=== PATIENT | female | born 1955 | race Caucasian/White ===

== ENCOUNTER 2016-07-17 05:17 | Inpatient (IN) | payer BC ==
[2016-06-17 09:11] VITALS: BMI 41.0
--- NOTE | 2016-06-17 10:02 | PAT Medication Instructions ---
Service Date Jun 17, 2016. Current Home Medication List Aspirin Enteric Coated (Ecotrin Or Generic *), 325 MG PO QPM Atenolol (Tenormin), 50 MG PO QAM Cholecalciferol (Vitamin D3), 1 CAP PO QAM Diclofenac (Voltaren), 50 MG PO QAM Fish Oil ([place]-3), 2,000 MG PO QPM Losartan Potassium (Cozaar), 50 MG PO BID Lovastatin (Mevacor), 80 MG PO QPM Magnesium Oxide (Mag-Ox), 400 MG PO QAM Metformin HCL (Glucophage *), 1,000 MG PO BID Multivitamin (Multivitamin), 1 TAB PO QPM Niacin (Niacin), 2,000 MG PO QPM Pantoprazole (Protonix), 40 MG PO QAM [Calcium], 600 MG PO QPM [Co Q10], 1 TAB PO PRN Medication Instructions For Your Scheduled Surgery - Instructions to be given by surgeon: Aspirin Enteric Coated (Ecotrin Or Generic *), 325 MG PO QPM Diclofenac (Voltaren), 50 MG PO QAM - Hold the following medications 2 weeks prior to surgery: [Co Q10], 1 TAB PO PRN Fish Oil ([place]-3), 2,000 MG PO QPM - Hold the following medications 48 hours prior to surgery: Metformin HCL (Glucophage *), 1,000 MG PO BID - Hold the following medications 24 hours prior to surgery: Losartan Potassium (Cozaar), 50 MG PO BID Niacin (Niacin), 2,000 MG PO QPM - Hold the following medications the morning of surgery: Magnesium Oxide (Mag-Ox), 400 MG PO QAM Cholecalciferol (Vitamin D3), 1 CAP PO QAM - Take the following medications the morning of surgery with a sip of water OTHERWISE NOTHING TO EAT OR DRINK AFTER MIDNIGHT: Atenolol (Tenormin), 50 MG PO QAM Pantoprazole (Protonix), 40 MG PO QAM - Take the following medications as scheduled the night before surgery: Lovastatin (Mevacor), 80 MG PO QPM Multivitamin (Multivitamin), 1 TAB PO QPM [Calcium], 600 MG PO QPM If you have any questions please call us at [phone] (Netta Ramirez PA-C) or [phone] or [phone]
--- NOTE | 2016-06-17 10:23 | DIAGNOSTIC IMAGING REPORT ---
CHEST PREADMISSION(PA/LAT) HISTORY: Preop. COMPARISON: None. FINDINGS: The lungs are clear. Cardiac silhouette is normal in size. No pleural effusions. No pneumothorax. IMPRESSION: No acute process. Electronically signed by: Fransisco Everett M.D. 06/17/2016 10:22 AM
[2016-06-17 11:16] LABS: BASO % 0.3 %; BASO ABS # 0.02 K/uL (0-0.2); COMPLETE YES; EOS % 2.1 %; HEMATOCRIT 35.1 % (37-47); IG% 0.2 %; LYMPH % 40.3 %; LYMPH ABS # 2.55 K/uL (1.2-3.4); MEAN CORPUSCULAR HEMOGLOBIN 33.2 pg (25-34); MEAN CORPUSCULAR HGB CONC 33.9 g/dl (32-36); MEAN PLATELET VOLUME 8.6 fL (7.4-10.4); MONO % 11.4 %; NEUT % 45.7 %; PLATELET COUNT 292 K/uL (130-400); RED BLOOD COUNT 3.58 M/uL (4.2-5.4); WHITE BLOOD COUNT 6.33 K/uL (4.8-10.8)
[2016-06-17 11:17] LABS: URINE APPEARANCE CLEAR (CLEAR); URINE BILIRUBIN NEG (NEG); URINE COLOR YELLOW; URINE NITRITE NEG (NEG); URINE PH 6.5 (4.5-7.5); URINE SPECIFIC GRAVITY 1.005 (1.000-1.030); UROBILINOGEN NEG (NEG)
[2016-06-17 11:31] LABS: MANUAL MICROSCOPIC REQUIRED? NO; REVIEW REQ? NO
[2016-06-17 11:41] LABS: BUN/CREATININE RATIO 22.2 (10-20); CREATININE 1.2 mg/dl (0.60-1.20); POTASSIUM 4.6 mmol/L (3.5-5.1)
[2016-06-17 11:58] LABS: CALCIUM 10.3 mg/dl (8.5-10.1)
--- NOTE | 2016-07-16 15:10 | HISTORY & PHYSICAL EXAMINATION ---
DATE OF ADMISSION: 07/17/2016 HISTORY OF PRESENT ILLNESS: The patient presents to our office with a complaint of back and left leg pain. It is progressively worsening. Right leg is asymptomatic. Walking and sitting reproduced her pain. She also reports weakness along her left leg. Sitting, she is comfortable. She has trialed injections with Dr. Beach which had provided roughly 1 month of relief. She is also taking muscle relaxants for pain control. PAST MEDICAL HISTORY: Significant for hypertension, hypercholesterolemia, spinal stenosis. PAST SURGICAL HISTORY: Significant for knee replacement, ankle reconstruction and tonsillectomy. ALLERGIES: None. MEDICATIONS: None listed. FAMILY HISTORY: Arthritis and heart disease. SOCIAL HISTORY: She is a former smoker. She uses alcohol. She is retired from [employer]. SMOKING HISTORY: She is a smoker, she quit in 2011. she was smoking half pack cigarettes x20 years. REVIEW OF SYSTEMS: Significant for difficulty walking, back and leg pain. PHYSICAL EXAMINATION: VITAL SIGNS: 5 feet 7 inches, 220 pounds. HEENT: Speech appropriate. CARDIOPULMONARY: No gross abnormalities. ABDOMEN: Soft, nontender. GENITOURINARY: Deferred. NEUROLOGIC: Cranial nerves II-XII grossly intact. MUSCULOSKELETAL: Ambulates with a stooped but a steady gait. She has difficulty toe walking on the right secondary to ankle surgery. She has 4-4+/5 left hamstring and hip flexor. Otherwise, strength is intact. ASSESSMENT: Grade 1-2 spondylolisthesis of L5-S1. Severe degenerative changes at L2-L3, L3-L4 and L4-L5. Severe neural foraminal stenosis L4-L5 and L5-S1. PLAN: At this point in time, she has tried and failed conservative therapy and may consider surgical intervention. Surgery would require lumbar decompression with instrumented fusion L2-L3, L3-L4, L4-L5 and L5-S1 levels. Risks, benefits, pros, cons, and alternatives were outlined in detail. She would proceed with the above-mentioned surgical intervention as soon as possible. DERRELL
[~2016-07-17] VITALS: Ht 170.2 cm; Wt 120.0 kg
[2016-07-17] VITALS (11 sets, daily range): BP systolic 96–164; BP diastolic 56–94; PULSE 63–85; TEMP 36.4–37.2; O2SAT 94–99; Ht 170.2 cm; Wt 120.0 kg
[~2016-07-17 05:17] MED LIST: AMLO-110 PO; ASPEC325 PO; ATEN50TA8 PO; CALC-51 PO; CHOL2000 PO; CO Q10 PO; DICL50TA3 PO; GLC500 PO; LOSA50TA6 PO; LOVA40TA4 PO; MAGN400T6 PO; MULT-506 PO; NIAC500T11 PO; OMEG10007 PO; PANT40TA PO
[2016-07-17] MEDS ORDERED: ACET-1256 PO (05:57)
[2016-07-17] MEDS ORDERED: CYCL10TA6 PO (05:58)
[2016-07-17] MEDS ORDERED: CEFAZOLIN 3000 MG/65 ML D5W IV SCH (06:00)
[2016-07-17] MEDS ORDERED: LACTATED RINGER'S 1000ML 1,000 ML IV SCH (06:00)
[2016-07-17] MEDS ORDERED: MIDAZOLAM HCL 1 MG/ML 2ML VIAL ONE (06:35)
[2016-07-17] MEDS ORDERED: FENTANYL CITRATE INJ 50 MCG/1 ML 2 ML VIAL ONE ×4 (06:35→10:39)
[2016-07-17] MEDS ORDERED: PROMETHAZINE HCL INJ 12.5 MG in SODIUM CHLORIDE 0.9% 50ML 50 ML IV PRN ×2 (07:30→10:45)
[2016-07-17] MEDS ORDERED: HYDROmorphone INJ 1 MG/ML SYR IV PRN (07:30)
[2016-07-17] MEDS ORDERED: ONDANSETRON INJ 2 MG/ML 2 ML VIAL IV PRN ×2 (07:30→10:45)
[2016-07-17] MEDS ORDERED: EpHEDrine SULFATE INJ 50 MG/ML AMP IV PRN (07:30)
[2016-07-17] MEDS ORDERED: ATROPINE SULFATE 0.1 MG/ML 5ML SYR IV PRN (07:30)
--- NOTE | 2016-07-17 07:34 | History & Physical Bridge Note ---
H&P Re-Evaluation Bridge Note: I have examined the patient, reviewed the History & Physical and in the interval since the performance of the History & Physical I have noted the following changes of clinical significance: No changes noted
[2016-07-17] MEDS ORDERED: HYDROmorphone INJ 2 MG/ML SYR/VIAL ONE ×2 (08:36→10:53)
[2016-07-17] MEDS ORDERED: THROMBIN 20000 UNIT TOP ONE (09:47)
[2016-07-17] MEDS ORDERED: FLOSEAL HEMOSTATIC MATRIX 10ML TOP ONE (10:09)
[2016-07-17] MEDS ORDERED: DEXAMETHASONE SOD INJ 4 MG/ML VIAL ONE (10:18)
[2016-07-17] MEDS ORDERED: PHENYLEPHRINE 100MCG/ML 5ML SYR ONE (10:18)
[2016-07-17] MEDS ORDERED: PROPOFOL IV EMULSION 10 MG/ML 20 ML VIAL IV ONE (10:18)
[2016-07-17] MEDS ORDERED: LIDOCAINE HCL 2% 2 ML VIAL (20MG/ML) ONE (10:18)
[2016-07-17] MEDS ORDERED: ROCURONIUM BROMIDE 10 MG/ML 5 ML VIAL ONE (10:18)
[2016-07-17] MEDS ORDERED: EpHEDrine SULFATE 50MG/5ML SYR ONE (10:18)
[2016-07-17] MEDS ORDERED: BUPIVACAINE/EPINEPHRINE 0.5% MPF 1:200,000 30 ML VIAL INJ ONE (10:37)
[2016-07-17] MEDS ORDERED: BACITRACIN 50000 UNIT VIAL IR ONE (10:37)
[2016-07-17] MEDS ORDERED: SODIUM CHLORIDE 0.9% 1000ML 1,000 ML IV SCH (10:38)
[2016-07-17] MEDS: LACTATED RINGER'S 1000ML 1,000 ML IV SCH ×2 (10:38→18:23)
--- NOTE | 2016-07-17 10:38 | [facility] Post Operative Brief Note ---
Immediate Operative Summary Operative Date Jul 17, 2016. Pre-Operative Diagnosis Grade 1-2 Spondylolisthesis of L5-S1. Severe Degenerative changes at L2-L3, L3-L4 and L4-L5. Severe Neural Foraminal Stenosis L4-L5 and L5-S1. Post-Operative Diagnosis Grade 1-2 Spondylolisthesis of L5-S1. Severe Degenerative changes at L2-L3, L3-L4 and L4-L5. Severe Neural Foraminal Stenosis L4-L5 and L5-S1. Procedure(s) Performed L2-S1 Lumbar Decompression Fusion with Instrumentation, Pedicle Screw Fixation, Iliac Wisner Fixation, Interbody Fusion with application of interbody cage at L3-L4, L4-L5, L5-S1. Bone Morphogenetic Protein, Minoo Allograft. Surgeon Dr. Nicolas Zambrano [facility] Nursing Director Surgeon(s) Anupama Tomlin PA-C Estimated Blood Loss 450ML Findings stenosis/spondy Specimens none, Per Surgeon
[2016-07-17] MEDS ORDERED: MAGNESIUM HYDROXIDE SUSP 30 ML UDC PO PRN (10:45)
[2016-07-17] MEDS ORDERED: ACETAMINOPHEN IV 100 ML IV PRN (10:45)
[2016-07-17] MEDS ORDERED: LORAZEPAM 0.5 MG TAB PO PRN (10:45)
[2016-07-17] MEDS ORDERED: DO NOT ADMINISTER PNEUMOCOCCAL VACCINE PRN ×2 (10:45)
[2016-07-17] MEDS ORDERED: ACETAMINOPHEN 500 MG TAB PO PRN (10:45)
[2016-07-17] MEDS ORDERED: DO NOT ADMINISTER FLU VACCINE PRN ×3 (10:45)
[2016-07-17] MEDS ORDERED: BISACODYL 10 MG SUPP PR PRN (10:45)
[2016-07-17] MEDS ORDERED: SOD PHOSPHATE/SOD BIPHOSPHATE ENEMA 132 ML BTL PR PRN (10:45)
[2016-07-17] MEDS ORDERED: FAMOTIDINE 20 MG TAB PO PRN (10:45)
[2016-07-17] MEDS ORDERED: LORAZEPAM INJ 0.5 MG in SYRINGE 0.75 ML IV PRN (10:45)
[2016-07-17] MEDS ORDERED: hydrOXYzine HCL 25 MG TAB PO PRN (10:45)
[2016-07-17] MEDS ORDERED: NALOXONE HCL 0.4 MG/1 ML VIAL/CARP IV PRN ×2 (10:45)
[2016-07-17] MEDS ORDERED: METOCLOPRAMIDE HCL INJ 5 MG/ML 2 ML VIAL IV PRN (10:45)
--- NOTE | 2016-07-17 10:46 | DIAGNOSTIC IMAGING REPORT ---
INTRAOPERATIVE FLUOROSCOPIC IMAGES OF THE LUMBAR SPINE CLINICAL HISTORY: L2-S1 Laminectomy/Decompression COMPARISON STUDY: No previous studies for comparison. FLUOROSCOPY TIME: 38 seconds. FINDINGS: These 4 images demonstrate L3-L4 and L5-S1 discectomies with interbody spacer placement. There are bilateral pedicle screws at the L2, L3, L4, L5 and S1 levels. There are bilateral iliac bolts. Hardware is intact. Posterior decompression is noted. IMPRESSION: Post surgical findings consistent with L3-L4 and L5-S1 discectomies and L2-S1 fusion. Electronically signed by: Rosendo Parks M.D. 07/17/2016 10:44 AM Dictated Date/Time: 07/17/2016 10:42 AM
[2016-07-17] MEDS ORDERED: ONDANSETRON INJ 2 MG/ML 2 ML VIAL ONE (10:54)
[2016-07-17] MEDS ORDERED: KETOROLAC TROMETHAMINE 30 MG/ML VIAL ONE (10:54)
[2016-07-17] MEDS ORDERED: NEOSTIGMINE METHYLSULFATE 1 MG/ML 10ML VIAL ONE (10:54)
[2016-07-17] MEDS ORDERED: GLYCOPYRROLATE INJ 0.2 MG/ML VIAL ONE (10:54)
[2016-07-17] MEDS ORDERED: PHARMACY GLYCEMIC MGMT CONSULT PRN (11:06)
[2016-07-17] MEDS: HYDROmorphone HCL 0.5MG/ML 50 ML CASSETTE IV PRN ×4 (11:14→22:50)
[2016-07-17] MEDS: FENTANYL CITRATE INJ 50 MCG/1 ML 2 ML VIAL IV PRN ×3 (11:30→11:45)
--- NOTE | 2016-07-17 12:00 | Anesthesiology Progress Note ---
Anesthesia Post Op Note Date & Time Jul 17, 2016 at 12:00 Vital Signs Pain Intensity: 4 Vital Signs Past 12 Hours Date Time Temp Pulse Resp B/P Pulse Ox O2 Delivery O2 Flow Rate FiO2 07/17/16 11:45 121/61 07/17/16 11:42 66 15 07/17/16 11:42 67 15 99 07/17/16 11:39 119/59 07/17/16 11:37 76 16 07/17/16 11:37 76 16 100 07/17/16 11:33 122/67 07/17/16 11:32 75 18 07/17/16 11:32 75 18 99 07/17/16 11:29 116/66 07/17/16 11:27 82 18 07/17/16 11:27 81 18 100 07/17/16 11:24 113/64 07/17/16 11:22 78 16 100 07/17/16 11:22 82 16 07/17/16 11:18 114/63 07/17/16 11:17 87 14 07/17/16 11:17 87 14 100 07/17/16 11:13 117/74 07/17/16 11:12 90 16 100 07/17/16 11:12 92 16 07/17/16 11:08 105/65 07/17/16 11:07 101 17 07/17/16 11:07 36.9 101 16 100/71 99 Mask 10 07/17/16 11:07 100 17 97 07/17/16 05:35 37.2 85 20 164/94 97 Room Air Notes Mental Status: alert / awake / arousable, participated in evaluation Pt Amnestic to Procedure: Yes Nausea / Vomiting: adequately controlled Pain: adequately controlled Airway Patency, RR, SpO2: stable & adequate BP & HR: stable & adequate Hydration State: stable & adequate Anesthetic Complications: no major complications apparent
--- NOTE | 2016-07-17 12:27 | OPERATIVE REPORT ---
DATE OF OPERATION: 07/17/2016 PREOPERATIVE DIAGNOSES: Spinal stenosis, spondylolisthesis. POSTOPERATIVE DIAGNOSIS: Same. PROCEDURE PERFORMED: 1. Lumbar decompression and medial facetectomy and foraminotomy L2-3, L3-4, L4-5, L5-S1. 2. Posterior spinal fusion L2-3, L3-4, L4-5, L5-S1. 3. Placement bilateral SI joint fusions. 4. Placement of posterior segmental instrumentation using Medicrea rods and screws L2-S1 with bilateral iliac bolts. 5. Interbody fusion L3-L4, L5-S1. 6. Placement of PEEK cage 10 x 26 at L3-L4 and 8 x 22 at L5-S1. 7. Placement of locally harvested morcellized autograft in the posterior lateral gutters. 8. Placement of Infuse collagen sponge combined with Mastergraft in posterior lateral gutters and Minoo bone grafting in the interbody spaces. SURGEON: Dr. Nicolas Zambrano. INDUSTRIAL PHARMACIST: Anupama Tomlin PA-C. ANESTHESIA: General. DISPOSITION: The patient awakened and taken to PACU in stable condition. HISTORY OF PATIENT'S PROBLEMS: A 60-year-old female that presents with above-mentioned diagnosis. After failing an extensive course of nonoperative care, elected to undergo the above-mentioned procedure. Risks, benefits, pros, cons, and alternatives were outlined in detail preoperatively. PROCEDURE: The patient was met with preoperatively, case discussed and all questions were addressed. At that point the patient was taken back to the operative suite and after undergoing successful general intubation by the department of anesthesia was placed in prone position on Terrence table atop Rory frame. All bony prominences were well padded and the eyes were inspected to ensure there was no external pressure placed upon them. At this point, the lumbar spine was prepped and draped in a normal sterile fashion. Sharp dissection with the assistance of Bovie cautery was performed down to and exposing the lamina and transverse processes of 2, 3, 4, 5 and the bilateral sacral SI joints. From a caudal to cephalad fashion, complete laminectomy of 5, 4, 3 and 2 was performed addressing severe central lateral recess stenosis and foraminal disease. Pedicle screws were then placed in 2, 3, 4, 5 and S1 levels, as well as bilateral iliac bolts. Through a transforaminal approach on the left, a complete discectomy of L5-S1 was performed, endplates curetted to subcortical bleeding bone and an 8 x 22 mm PEEK cage filled with Minoo bone grafting tapped into position. I then proceeded to 3-4 and again through a transforaminal approach on the left, a complete discectomy was performed, endplates curetted to subcortical bleeding bone and a 10 x 26 mm PEEK cage filled with Minoo bone grafting tapped into position. The bilateral posterior aspect of the SI joints were then burred to subcortical bleeding bone. Appropriate size rods were contoured and locked in position bilaterally including a Crosslink and bone graft was placed in the posterior lateral gutters in the bilateral SI joints. A 7 flat XENA drain was inserted. Incision was closed with 1-0 Vicryl in the fascia, 2-0 Vicryl subcutaneously, 4-0 Monocryl for final skin closure. Steri-Strips and sterile dressing placed. The patient was awakened and taken to PACU in stable condition. Due to the complex nature of the procedure, the entire surgery was performed with the operational assistance of Anupama Tomlin PA-C. The anesthesiologist assistant certified, under direct supervision, was involved in the actual performance of all aspects of the surgical procedure including hemostasis, tissue retraction and incision, instrument management, patient positioning, and wound closure. I attest to the content of the Intraoperative Record and any orders documented therein. Any exceptio ns are noted below.
[2016-07-17] MEDS ORDERED: NURSING VERBAL MED ORDER ONE (13:00)
[2016-07-17] MEDS ORDERED: COUGH DROP (SUGAR FREE) LOZ 24 LOZ/1 BOX PO PRN (13:15)
--- NOTE | 2016-07-17 14:41 | Pharmacy Progress Note ---
Glycemic: Assessment & Plan Date of Service Jul 17, 2016. Assessment & Plan Item Value Date Time Bedside Glucose 158 mg/dl H 07/17/16 1110 Bedside Glucose 119 mg/dl H 07/17/16 0620 Hemoglobin A1c 4.8 % 06/26/16 0808 Home Diabetes Regimen: * metformin 1 gram po BID PLAN: Pt received dexamethasone pre-op and ordered 6mg IV q8hrs post-op. Will initially order Novolog per CF/CR and follow BSGs closely. * Basal insulin: not ordered at this time * Correctional Insulin: Novolog Correction per scale ACHS & 0200 Goal Range: Low 110 mg/dL - High 150 mg/dL Correction Factor: 25 mg/dL/unit * Prandial insulin: Per carb ratio of 1 unit per 9 grams CHO consumed Pharmacy will continue to monitor patient daily and write orders per [facility] inpatient glycemic control protocol. Thanks. * Please note that the plan above was derived based on current level of insulin resistance and hospital stress. These recommendations are appropriate for inpatient admission only. Plan of care upon discharge will need to be reassessed to avoid potential outpatient hypo/hyperglycemia.
[2016-07-17] MEDS ORDERED: DEXTROSE 50% 50 ML SYR IV PRN (14:45)
[2016-07-17] MEDS ORDERED: GLUCOSE 40% GEL 15 GM TUBE PO PRN (14:45)
[2016-07-17] MEDS ORDERED: GLUCAGON FOR INJ 1 MG VIAL SQ PRN (14:45)
[2016-07-17] MEDS ORDERED: GLUCOSE 10 TABS/TUBE PO PRN (14:45)
--- NOTE | 2016-07-17 15:36 | Medical Consult ---
Consultation Date of Consultation: Jul 17, 2016. Attending Physician: Nicolas Zambrano D.O. Reason for Consultation: Postoperative medical management History of Present Illness The patient is a 60-year-old female who is status post lumbar decompression surgery by Dr. Zambrano earlier today. Seen postoperatively, she has no complaints. She is resting comfortably lying in bed, ate her lunch without difficulty. Social History Smoking Status: Former Smoker Smokeless Tobacco Use: No Alcohol Use: socially Drug Use: none ( ) Allergies Coded Allergies: No Known Allergies (Verified , 07/17/16) Current Inpatient Medications Current Inpatient Medications Medications (Trade) Dose Ordered Sig/Alicia Route Start Time Stop Time Status Last Admin Dose Admin Cefazolin Sodium 65 ml @ 100 mls/hr PREOP IV 07/17/16 06:00 07/17/16 18:00 07/17/16 07:40 100 MLS/HR Lactated Ringer's 1,000 ml @ 15 mls/hr Q24H IV 07/17/16 06:00 07/17/16 18:00 Dexamethasone Sodium Phosphate 6 mg/Syringe 1.5 ml @ 1 mls/min Q8H IV 07/17/16 18:00 07/18/16 10:02 Promethazine HCl/ Sodium Chloride (Phenergan Inj/ Nss 50ml) 50.5 ml @ 202 mls/hr Q6H PRN IV 07/17/16 10:45 08/16/16 10:44 Ondansetron HCl (Zofran Inj) 4 mg Q6H PRN IV 07/17/16 10:45 08/16/16 10:44 Metoclopramide HCl (Reglan Inj) 10 mg Q6H PRN IV 07/17/16 10:45 08/16/16 10:44 Lorazepam 0.5 mg 0.5 mg Q8H PRN PO 07/17/16 10:45 08/16/16 10:44 Lorazepam/Syringe (Ativan Inj/ Syringe) 1 ml @ 1 mls/min Q8H PRN IV 07/17/16 10:45 08/16/16 10:44 Pneumococcal Polysaccharide Vaccine 1 ea PRN PRN N/A 07/17/16 10:45 08/16/16 10:44 Influenza Virus Vacc Triv Types A&B 1 ea PRN PRN N/A 07/17/16 10:45 08/16/16 10:44 Polyethylene (Miralax Powder Packet) 17 gm Q6 PO 07/19/16 06:00 08/18/16 05:59 Bisacodyl (Dulcolax Supp) 10 mg DAILY PRN FL 07/17/16 10:45 08/16/16 10:44 Magnesium Hydroxide (Milk Of Magnesia Susp) 30 ml DAILY PRN PO 07/17/16 10:45 08/16/16 10:44 Hydromorphone HCl (Dilaudid Inj) 0.5 mg Q3H PRN IV 07/18/16 06:00 08/01/16 05:59 Oxycodone HCl 5-10mg prn moderate to sev... Q4H PRN PO 07/18/16 06:00 08/01/16 05:59 Cefazolin Sodium 3000 mg/Dextrose 65 ml @ 100 mls/hr Q8H IV 07/17/16 16:00 07/18/16 00:38 Lactated Ringer's (Lr 1000ml) 1,000 ml @ 150 mls/hr Q6H40M IV 07/17/16 10:38 08/16/16 10:37 07/17/16 10:38 150 MLS/HR Acetaminophen 1000 mg 1,000 mg Q8H PRN PO 07/17/16 10:45 08/16/16 10:44 Acetaminophen (Ofirmev Iv) 100 ml @ 400 mls/hr Q8H PRN IV 07/17/16 10:45 08/16/16 10:44 Naloxone HCl (Narcan Inj) 0.1 mg Q5M PRN IV 07/17/16 10:45 08/16/16 10:44 Senna/Docusate Sodium (Senokot S Tab) 2 tab HS PO 07/17/16 21:00 08/16/16 20:59 Sodium Biphosphate/ Sodium Phosphate (Fleet Enema) 132 ml ONE PRN FL 07/17/16 10:45 08/16/16 10:44 Hydroxyzine HCl (Vistaril Tab) 25 mg Q8H PRN PO 07/17/16 10:45 08/16/16 10:44 Al Hydroxide/Mg Hydroxide (Maalox Susp) 30 ml Q6H PRN PO 07/17/16 10:45 08/16/16 10:44 Famotidine (Pepcid Tab) 20 mg Q12 PRN PO 07/17/16 10:45 08/16/16 10:44 Diphenhydramine HCl (Benadryl Cap) 25 mg Q6H PRN PO 07/17/16 10:45 08/16/16 10:44 Miscellaneous Information (Discontinue INVESTMENT FUND MANAGER) 1 ea TODAY@0600 N/A 07/18/16 06:00 07/18/16 06:01 Naloxone HCl (Narcan Inj) 0.1 mg Q5M PRN IV 07/17/16 10:45 07/18/16 06:00 Hydromorphone HCl 25 mg 25 mg PRN PRN IV 07/17/16 10:45 07/18/16 06:00 07/17/16 15:12 25 MG Sodium Chloride (Nss 1000ml) 1,000 ml @ 15 mls/hr Q24H IV 07/17/16 10:38 07/18/16 06:00 Amlodipine Besylate (Norvasc Tab) 5 mg DAILY PO 07/18/16 09:00 08/17/16 08:59 Aspirin (Ecotrin Tab) 325 mg QPM PO 07/17/16 21:00 08/16/16 20:59 Atenolol (Tenormin Tab) 50 mg QAM PO 07/18/16 09:00 08/17/16 08:59 Losartan Potassium (coZAAR TAB) 50 mg BID PO 07/17/16 21:00 08/16/16 20:59 Magnesium Oxide (Mag-Ox Tab) 400 mg QAM PO 07/18/16 09:00 08/17/16 08:59 Niacin (Niacin Tab) 2,000 mg QPM PO 07/17/16 21:00 08/16/16 20:59 Pantoprazole Sodium (Protonix Tab) 40 mg QAM PO 07/18/16 09:00 08/17/16 08:59 Miscellaneous Information (Consult Glycemic Management Pharmacy) 1 ea UD PRN N/A 07/17/16 11:06 08/16/16 11:05 Hydromorphone HCl (Dilaudid Inj) 1 mg Q3H PRN IV 07/18/16 06:00 08/01/16 05:59 Menthol (Nice Abelino) 1 abelino PRN PRN PO 07/17/16 13:15 08/16/16 13:14 07/17/16 14:37 1 ABELINO Insulin Aspart (novoLOG ASPART) SLIDING SCALE ACHS SC 07/17/16 17:15 08/16/16 17:14 Glucose (Glucose 40% Gel) 15-30 GRAMS 15 GRAMS... UD PRN PO 07/17/16 14:45 08/16/16 14:44 Glucose (Glucose Chew Tab) 4-8 Tablets 4 Tabl... UD PRN PO 07/17/16 14:45 08/16/16 14:44 Dextrose (Dextrose 50% 50ML Syringe) 25-50ML OF 50% DW IV FOR... UD PRN IV 07/17/16 14:45 08/16/16 14:44 Glucagon (Glucagon Inj) 1 mg UD PRN SQ 07/17/16 14:45 08/16/16 14:44 Insulin Aspart (novoLOG ASPART) SLIDING SCALE ONE ONCE SC 07/18/16 02:00 07/18/16 02:01 Review of Systems The patient denies chest pain, palpitations, shortness of breath, cough, lower extremity swelling, vision change, hearing change, sore throat, fevers, chills, sweats, weight change, fatigue, nausea, vomiting, abdominal pain, pelvic pain, blood in urine or stool, dysuria, urinary frequency or urgency, lightheadedness , dizziness, headache, memory loss, rash, abnormal bruising or bleeding, imbalance, focal or generalized weakness, numbness or tingling in arms or legs, arthralgias or myalgias, night sweats, or allergy symptoms. The review of systems is otherwise negative other than for that already noted above, and at least 10 systems have been reviewed. Physical Exam Date Time Temp Pulse Resp B/P Pulse Ox O2 Delivery O2 Flow Rate FiO2 07/17/16 14:42 76 16 120/78 98 Nasal Cannula 4.0 07/17/16 13:45 63 16 101/58 96 Nasal Cannula 4.0 07/17/16 13:15 75 16 96/56 99 Nasal Cannula 4.0 07/17/16 12:45 95 Nasal Cannula 4.0 07/17/16 12:45 36.7 67 16 137/63 95 Nasal Cannula 4.0 07/17/16 12:45 Nasal Cannula 4.0 07/17/16 12:30 36.4 67 16 103/57 100 Nasal Cannula 4 07/17/16 12:06 69 23 17 12:06 70 23 100 17 12:05 36.4 61 16 104/58 100 Nasal Cannula 4 07/17/16 12:04 104/58 07/17/16 12:01 60 14 99 07/17/16 12:01 62 14 07/17/16 11:59 118/62 17 11:56 66 10 17 11:56 66 10 98 07/17/16 11:53 120/59 07/17/16 11:51 69 16 100 17 11:51 69 16 17 11:48 119/52 17 11:46 73 15 100 17 11:46 73 15 17 11:45 121/61 07/17/16 11:42 66 15 17 11:42 67 15 99 17 11:39 119/59 17 11:37 76 16 17 11:37 76 16 100 17 11:33 122/67 17 11:32 75 18 17 11:32 75 18 99 17 11:29 116/66 17 11:27 82 18 17 11:27 81 18 100 17 11:24 113/64 17 11:22 78 16 100 17 11:22 82 16 07/17/17 11:18 114/63 17 11:17 87 14 17 11:17 87 14 100 17 11:13 117/74 17 11:12 90 16 100 17 11:12 92 16 17 11:08 105/65 1817 11:07 101 17 17 11:07 36.9 101 16 100/71 99 Mask 10 17 11:07 100 17 97 07/17/16 05:35 37.2 85 20 164/94 97 Room Air The patient is awake, well-developed and adequately nourished, alert and oriented 3, normocephalic and atraumatic, lying in bed and in no acute distress. HEENT--PERRL, EOMI, mucous membranes moist, and oropharynx normal. Neck--supple, no JVD or bruits, thyroid normal, trachea midline, no adenopathy. Heart--normal S1 and S2, no extra beats, no murmurs, rubs or gallops. Lungs--clear bilaterally with good air movement, no respiratory distress, no accessory muscle use. Abdomen--normal bowel sounds and soft, nontender and nondistended, no hernias or masses, no organomegaly. Extremities--no cyanosis, clubbing or edema. There are good distal pulses b/l. Dermatologic--normal skin turgor, normal color, warm and dry, no abnormal lymph nodes, no rash. Neurologic--cranial nerves II through XII grossly intact. Psychiatric--normal affect. Laboratory Results Last 24 Hours Test 07/17/16 05:40 07/17/16 06:20 07/17/16 11:10 Bedside Glucose 119 mg/dl 158 mg/dl Assessment & Plan Seen Status post lumbar decompression surgery, is medically stable. Hypertension--continue amlodipine 5 mg by mouth daily, aspirin 325 mg by mouth daily, atenolol 50 mg by mouth every morning with hold parameters, mag oxide 400 mg by mouth every morning and losartan potassium 50 mg by mouth twice a day with hold parameters. Diabetes mellitus-hold metformin with us milligrams by mouth twice a day. Place on Accu-Cheks before meals and at bedtime with NovoLog coverage. Hypercholesterolemia--continue lovastatin 40 mg by mouth every afternoon and niacin 2000 mg by mouth every afternoon. GERD--continue pantoprazole 40 mg by mouth every morning.
[2016-07-17] MEDS: CEFAZOLIN IV 3,000 MG in DEXTROSE 5% 50ML 50 ML IV SCH ×2 (16:28→23:25)
[2016-07-17] MEDS: INSULIN ASPART 100 UNITS/ML 3 ML PEN SC SCH ×2 (18:21→21:15)
[2016-07-17] MEDS: DEXAMETHASONE INJ 6 MG in SYRINGE 0 ML IV SCH (18:26)
[2016-07-17] MEDS: ASPIRIN 325 MG ECTAB PO SCH (21:02)
[2016-07-17] MEDS: DOCUSATE SODIUM/SENNA 50/8.6MG TAB PO SCH (21:02)
[2016-07-17] MEDS: LOSARTAN POTASSIUM 50 MG TAB PO SCH (21:03)
[2016-07-17] MEDS: NIACIN 500 MG TAB IMMEDIATE RELEASE PO SCH (21:03)
[2016-07-17] MEDS ORDERED: SODIUM CHLORIDE 0.9% 500ML 500 ML IV ONE (21:45)
[2016-07-18] VITALS (7 sets, daily range): BP systolic 107–155; BP diastolic 63–81; PULSE 73–95; TEMP 36.4–37; O2SAT 93–96
[2016-07-18] MEDS ORDERED: INSULIN ASPART 100 UNITS/ML 3 ML PEN SC ONE (02:00)
[2016-07-18] MEDS: DEXAMETHASONE INJ 6 MG in SYRINGE 0 ML IV SCH ×2 (02:13→10:25)
[2016-07-18] MEDS: LACTATED RINGER'S 1000ML 1,000 ML IV SCH (04:20)
[2016-07-18 05:45] LABS: HEMATOCRIT 25.3 % (37-47); IG% 0.2 %; LYMPH % 6.8 %; LYMPH ABS # 0.83 K/uL (1.2-3.4); MEAN CELL VOLUME 94.8 fL (80-100); MEAN CORPUSCULAR HEMOGLOBIN 33.3 pg (25-34); MEAN CORPUSCULAR HGB CONC 35.2 g/dl (32-36); MEAN PLATELET VOLUME 7.9 fL (7.4-10.4); MONO % 6.2 %; NEUT % 86.8 %; PLATELET COUNT 236 K/uL (130-400); RED BLOOD COUNT 2.67 M/uL (4.2-5.4); WHITE BLOOD COUNT 12.19 K/uL (4.8-10.8)
[2016-07-18] MEDS ORDERED: HYDROmorphone INJ 0.5 MG/0.5 ML SYR IV PRN (06:00)
[2016-07-18] MEDS ORDERED: HYDROmorphone INJ 1 MG/ML SYR IV PRN (06:00)
[2016-07-18] MEDS ORDERED: NURSING DECISION MEDICATION ORDER SCH (06:00)
[2016-07-18] MEDS ORDERED: DC PCA SCH (06:00)
[2016-07-18 06:03] LABS: COMPLETE YES
[2016-07-18 06:18] LABS: BUN/CREATININE RATIO 14.6 (10-20); CALCIUM 8.4 mg/dl (8.5-10.1); CREATININE 1.5 mg/dl (0.60-1.20); POTASSIUM 4.6 mmol/L (3.5-5.1)
--- NOTE | 2016-07-18 08:21 | PROGRESS NOTE ---
DATE: 07/18/2016 Postop day 1. Back pain controlled. Leg pain improved. Vital signs stable. T-max 36.8. XENA drained 140 mL. Hematocrit this a.m. is 25.3. PHYSICAL EXAMINATION: The patient is sitting in bed, has good strength to testing. Appears comfortable. ASSESSMENT: Status post multilevel lumbar decompression and fusion. PLAN: At this time, will initiate physical therapy, advance his bowel regimen. Consider home health for discharge home, perhaps Friday.
[2016-07-18] MEDS: ALUMINUM/MAGNESIUM SUSP 30 ML UDC PO PRN (08:56)
[2016-07-18] MEDS: OXYCODONE HCL IR 5 MG TAB (IMMEDIATE RELEASE) PO PRN ×3 (08:57→20:56)
[2016-07-18] MEDS: AMLODIPINE BESYLATE 5 MG TAB PO SCH (08:57)
[2016-07-18] MEDS: MAGNESIUM OXIDE 400 MG TAB PO SCH (08:58)
[2016-07-18] MEDS: LOSARTAN POTASSIUM 50 MG TAB PO SCH ×2 (08:58→20:57)
[2016-07-18] MEDS ORDERED: PANTOprazole SOD 40 MG TAB PO SCH (09:00)
[2016-07-18] MEDS: INSULIN ASPART 100 UNITS/ML 3 ML PEN SC SCH ×4 (09:03→20:59)
--- NOTE | 2016-07-18 10:59 | Pharmacy Progress Note ---
Glycemic: Assessment & Plan Date of Service Jul 18, 2016. Assessment & Plan Home Diabetes Regimen: * metformin 1 gram po BID * HbA1c: 4.8% (06/26/16) ASSESSMENT: * Pt received dexamethasone pre-op and ordered 6mg IV q8hrs post-op. * BSGs appear to be adequately controlled with small doses of correctional/ prandial insulin thus far. * Continue Novolog coverage. No need for basal insulin at this time. Expect that pt may resume outpatient meds upon discharge. PLAN: continue orders from yesterday * Basal insulin: not ordered at this time * Correctional Insulin: Novolog Correction per scale ACHS & 0200 Goal Range: Low 110 mg/dL - High 150 mg/dL Correction Factor: 25 mg/dL/unit * Prandial insulin: Per carb ratio of 1 unit per 9 grams CHO consumed Pharmacy will continue to monitor patient daily and write orders per [facility] inpatient glycemic control protocol. Thanks. * Please note that the plan above was derived based on current level of insulin resistance and hospital stress. These recommendations are appropriate for inpatient admission only. Plan of care upon discharge will need to be reassessed to avoid potential outpatient hypo/hyperglycemia.
--- NOTE | 2016-07-18 11:01 | Anesthesiology Progress Note ---
Anesthesia Post Op Note Date & Time Jul 18, 2016 at 11:00 Vital Signs Vital Signs Past 12 Hours Date Time Temp Pulse Resp B/P Pulse Ox O2 Delivery O2 Flow Rate FiO2 07/18/16 09:22 93 Room Air 07/18/16 08:02 36.8 95 18 155/74 93 Room Air 07/18/16 07:20 Room Air 07/18/16 03:54 36.4 87 18 107/63 95 Room Air 07/17/16 23:30 Nasal Cannula 2.0 Notes Mental Status: alert / awake / arousable, participated in evaluation Pt Amnestic to Procedure: Yes Nausea / Vomiting: adequately controlled Pain: adequately controlled Airway Patency, RR, SpO2: stable & adequate BP & HR: stable & adequate Hydration State: stable & adequate Anesthetic Complications: no major complications apparent
--- NOTE | 2016-07-18 14:15 | Hospitalist Progress Note ---
Hospitalist Progress Note Date of Service Jul 18, 2016. Subjective Pt evaluation today including: conversation w/ patient, physical exam, chart review, lab review, review of studies, review of inpatient medication list Pain: None PO Intake: Good Voiding: no voiding problems The patient was seen and examined this morning. Pt reports she is doing well, slept overnight, and pain is well controlled. She c/o of indigestion but believes that "protonix is poison" and is requesting something else for GERD. She is willing to try ranitidine and use malox if needed. She has passed gas but not had a BM yet. Pt is tolerating oral diet without difficulty. Denies chest pain, palpitations, flutter, abd pain, n/v/d. All Other Systems: Reviewed and Negative (see HPI. ) Objective Vital Signs Date Time Temp Pulse Resp B/P Pulse Ox O2 Delivery O2 Flow Rate FiO2 07/18/16 11:35 36.9 90 18 145/81 96 Room Air 07/18/16 09:22 93 Room Air 07/18/16 08:02 36.8 95 18 155/74 93 Room Air 07/18/16 07:20 Room Air 07/18/16 03:54 36.4 87 18 107/63 95 Room Air 07/17/16 23:30 Nasal Cannula 2.0 07/17/16 22:35 36.4 74 18 130/82 96 Room Air 07/17/16 21:01 80 112/72 07/17/16 19:22 36.4 84 18 120/79 96 Nasal Cannula 2.0 07/17/16 15:46 36.8 82 14 129/84 97 Nasal Cannula 4.0 07/17/16 15:40 96 Nasal Cannula 4.0 07/17/16 14:42 76 16 120/78 98 Nasal Cannula 4.0 Physical Exam General Appearance: WD/WN, no apparent distress, + obese Eyes: PERRL, EOMI ENT: hearing grossly normal, pharynx normal Neck: no adenopathy, no JVD Respiratory/Chest: lungs clear, normal breath sounds, no respiratory distress, no accessory muscle use Cardiovascular: regular rate, rhythm, no murmur Abdomen: normal bowel sounds, non tender, soft Extremities: no pedal edema, no calf tenderness Neurologic/Psychiatric: alert, normal mood/affect, oriented x 3 Notes: Back: bandage in place over lumbar spine, dressing c/d/i. Laboratory Results Last 24 Hours Test 07/17/16 16:42 07/17/16 20:50 07/18/16 02:06 07/18/16 05:37 Bedside Glucose 176 mg/dl 195 mg/dl 160 mg/dl White Blood Count 12.19 K/uL Red Blood Count 2.67 M/uL Hemoglobin 8.9 g/dL Hematocrit 25.3 % Mean Corpuscular Volume 94.8 fL Mean Corpuscular Hemoglobin 33.3 pg Mean Corpuscular Hemoglobin Concent 35.2 g/dl Platelet Count 236 K/uL Mean Platelet Volume 7.9 fL Neutrophils (%) (Auto) 86.8 % Lymphocytes (%) (Auto) 6.8 % Monocytes (%) (Auto) 6.2 % Eosinophils (%) (Auto) 0.0 % Basophils (%) (Auto) 0.0 % Neutrophils # (Auto) 10.58 K/uL Lymphocytes # (Auto) 0.83 K/uL Monocytes # (Auto) 0.75 K/uL Eosinophils # (Auto) 0.00 K/uL Basophils # (Auto) 0.00 K/uL RDW Standard Deviation 42.6 fL RDW Coefficient of Variation 12.3 % Immature Granulocyte % (Auto) 0.2 % Immature Granulocyte # (Auto) 0.03 K/uL Red Blood Cell Morphology Unremarkable Sodium Level 134 mmol/L Potassium Level 4.6 mmol/L Chloride Level 99 mmol/L Carbon Dioxide Level 27 mmol/L Anion Gap 8.0 mmol/L Blood Urea Nitrogen 22 mg/dl Creatinine 1.50 mg/dl Est Creatinine Clear Calc Drug Dose 52.2 ml/min Estimated GFR () 42.8 Estimated GFR (Non- 37.0 BUN/Creatinine Ratio 14.6 Random Glucose 151 mg/dl Calcium Level 8.4 mg/dl Test 07/18/16 08:00 07/18/16 11:59 Bedside Glucose 156 mg/dl 139 mg/dl Assessment and Plan This is a 60 yo F with PMHx of HTN, DM type II, hyperlipidemia, GERD who is s/p lumbar decompression and fusion of L1-L2 with cages placed at L3-L4 and L5-S by Dr. Patel on 07/17/16. S/p Lumbar decompression and fusion by Dr. Kenya - POD # 1 - Pain control and anticoagulation per primary service - PT/OT on board - Bowel regimen - Follow am labs - VSS Hypertension- - continue amlodipine 5 mg daily, aspirin 325 mg daily, atenolol 50 mg QAM with holding parameters, - mag oxide 400 mg by mouth every morning - losartan potassium 50 mg by mouth BID with hold parameters. Hyponatremia - NA decreased to 134 - pt with good oral intake today so no IVFs at this time. - will re-eval with morning labs Diabetes mellitus, type II - hold metformin 1000 mg BID for now - ISS with Accu-Cheks achs Hypercholesterolemia- -continue lovastatin 40 mg by mouth every afternoon and niacin 2000 mg by mouth every afternoon. GERD- -continue pantoprazole 40 mg daily DVT ppx: SCDs, OOB per primary service CODE STATUS: Full Code Disposition: From home, d/c per primary team
[2016-07-18] MEDS: DOCUSATE SODIUM/SENNA 50/8.6MG TAB PO SCH (20:57)
[2016-07-18] MEDS: ASPIRIN 325 MG ECTAB PO SCH (20:57)
[2016-07-18] MEDS: RANITIDINE HCL 150 MG TAB PO SCH (20:58)
[2016-07-18] MEDS: NIACIN 500 MG TAB IMMEDIATE RELEASE PO SCH (20:59)
[2016-07-19] VITALS (14 sets, daily range): BP systolic 109–152; BP diastolic 65–84; PULSE 65–77; TEMP 36.3–37; O2SAT 96–100
[2016-07-19] MEDS: POLYETHYLENE (MIRALAX) 17 GM PACK PO SCH ×4 (05:59→23:40)
[2016-07-19 06:16] LABS: IG% 0.6 %; LYMPH % 14.6 %; LYMPH ABS # 1.67 K/uL (1.2-3.4); MEAN CORPUSCULAR HEMOGLOBIN 33.3 pg (25-34); MEAN CORPUSCULAR HGB CONC 35.5 g/dl (32-36); MEAN PLATELET VOLUME 8.5 fL (7.4-10.4); MONO % 6.9 %; NEUT % 77.9 %; PLATELET COUNT 260 K/uL (130-400); RED BLOOD COUNT 2.34 M/uL (4.2-5.4); WHITE BLOOD COUNT 11.42 K/uL (4.8-10.8)
[2016-07-19 06:43] LABS: CALCIUM 8.6 mg/dl (8.5-10.1); CREATININE 1.2 mg/dl (0.60-1.20); MAGNESIUM 2.3 mg/dl (1.8-2.4); POTASSIUM 4.6 mmol/L (3.5-5.1)
[2016-07-19] MEDS: OXYCODONE HCL IR 5 MG TAB (IMMEDIATE RELEASE) PO PRN ×4 (07:14→21:16)
[2016-07-19] MEDS: AMLODIPINE BESYLATE 5 MG TAB PO SCH (07:17)
[2016-07-19] MEDS: MAGNESIUM OXIDE 400 MG TAB PO SCH (07:17)
[2016-07-19] MEDS: LOSARTAN POTASSIUM 50 MG TAB PO SCH ×2 (07:17→21:19)
[2016-07-19] MEDS: INSULIN ASPART 100 UNITS/ML 3 ML PEN SC SCH ×4 (07:46→22:37)
[2016-07-19] MEDS: ALUMINUM/MAGNESIUM SUSP 30 ML UDC PO PRN ×2 (07:49→19:51)
[2016-07-19 08:14] LABS: COMPLETE YES
[2016-07-19] MEDS ORDERED: RXC5 PO (10:24)
--- NOTE | 2016-07-19 10:25 | Discharge Instructions ---
Discharge Instructions Admission Reason for Admission: Lumbar Spinal Stenosis Discharge Discharge Diagnosis / Problem: stenosis Discharge Goals Goal(s): Improve function Activity Recommendations Activity Limitations: per Instructions/Follow-up section . Instructions / Follow-Up Instructions / Follow-Up ACTIVITY RECOMMENDATIONS: SELF CARE INSTRUCTIONS AFTER THORACIC/LUMBAR FUSIONS 1. You may walk to your tolerance. It is good exercise for your legs and back. Expect some back and intermittent leg aches and pains. 2. You may perform "counter-top" level activities (make a sandwich, eduardo with a project, etc.). 3. No bending or lifting of more than 10 pounds or back twisting of any nature (roll like a log when turning in bed). 4. You may ride in a car for 20-30 minutes at a time. No driving until after your first visit with your doctor. 5. Frequent changes of position and restricting sitting to 30 minutes at a time will help limit the amount of back spasms and stiffness you may experience. 6. You may discontinue the use of ambulatory aids (cane, crutches, etc.) once your strength and confidence allow. 7. You may training and development coordinator the shower and let water strike your incision when you arrive home at least once daily. Do not take a tub bath, sit in a hot tub or go into a swimming pool until after your first recheck in the office. SPECIAL CARE INSTRUCTIONS: VERY IMPORTANT TO READ AND REVIEW A. Your surgical incision has been closed with a cosmetic suture under the skin that will dissolve in about 6 weeks. In 14 days, you can use a pair of clean scissors and cut the suture that is left outside of the skin at the ends of your incision. 1. The small skin tapes can be removed 7 days after surgery if they have not fallen off by that point. 2. You may keep the wound open to air as much as possible to promote healing after post-op day number 5 unless told otherwise by your doctor. 3. If you think the wound looks like it is becoming infected (redness or worsening drainage) and/or you are experiencing fever, chill or worsening back pain and muscle spasms, contact the office so that we may evaluate you as soon as possible. B. Complications are uncommon, but please contact us if you have any signs or symptoms of: 1. wound infection (fever higher than 102.5 degrees F, redness, separation of wound, drainage, or increasing pain from the incision) 2. blood clots in legs (pain, swelling, redness and warmth in legs) 3. urinary tract infection (fever higher than 102.5 degrees F, burning upon urination or increased frequency of urination) 4. nerve problems (inability to walk on your toes or heels, numbness, loss of bowel or bladder control) 5. any other symptoms that concern you C. Please call the office at if you have any concerns or questions about your operation or recovery. D. No smoking! Smoking drastically decreases the chance of a solid fusion. E. Do not take any anti-inflammatory medications (Indocin, Advil, Motrin, Aspirin, Naprosyn, etc.) as these may inhibit the chance of a solid fusion. Tylenol is okay to take for pain. MANAGING PAIN AFTER SPINAL SURGERY 1. Narcotic medication is intended for short-term use and will be provided for surgical pain. Surgical pain usually lasts for a period of 4-6 weeks. Narcotic medication includes Percocet, Vicodin, Darvocet, Tylenol #3 or Lortab. 2. Longer-term pain is more appropriately treated with non-narcotic medication such as Tylenol ES. 3. Muscle spasm is not appropriately treated with narcotics. Muscle relaxers such as Soma, Flexeril or Skelaxin can be used along with Tylenol ES. 4. Remember that we all live with some "aches and pains". This is not unusual or uncommon after an injury or as we get older. a. Back pain is expected and may include muscle spasms for 4 to 6 weeks after surgery. The pain should gradually improve. If the pain worsens for no apparent reason, please contact the office. b. Intermittent leg pain may also be experienced and should not be concerned about unless it worsens for no apparent reason. If so, please contact the office. 5. We will provide appropriate medication within the normal guidelines of their prescribed use. We will also be very cautious and aware of potential abuse and extended duration of patients' medication needs. a. Pain medications are for your comfort and to assist with sleep and rest so that the tissue can heal. They are not provided in order to return to normal activity and should not be used through the day. To do so or worsening pain at night can result from ongoing tissue damage and development of tolerance to the prescribed medicine. 6. Please allow 2-3 days to process refills. Prescriptions will not be mailed but must be picked up at the office. FOLLOW UP VISIT: Keep your scheduled follow-up appointment. Any questions, please call the office at . Current Hospital Diet Patient's current hospital diet: Diabetes Type 2 Diet Discharge Diet Recommended Diet: Regular Diet Procedures Procedures Performed: L2-S1 Lumbar Decompression Fusion with Instrumentation, Pedicle Screw Fixation, Iliac Cressey Fixation, Interbody Fusion with application of interbody cage at L3-L4, L4-L5, L5-S1. Bone Morphogenetic Protein, Minoo Allograft. Pending Studies Studies pending at discharge: no Laboratory Results Hemoglobin A1c Test 06/26/16 08:08 Range/Units Estimated Average Glucose 91 mg/dl Hemoglobin A1c 4.8 4.5-5.6 % Lipid Panel Test 06/26/16 08:08 Range/Units Triglycerides Level 155 H 0-150 mg/dl Cholesterol Level 220 H 0-200 mg/dl HDL Cholesterol 120 mg/dl Cholesterol/HDL Ratio 1.8 LDL Cholesterol, Calculated 69 mg/dl Medical Emergencies . Who to Call and When: Medical Emergencies: If at any time you feel your situation is an emergency, please call 911 immediately. . Non-Emergent Contact Non-Emergency issues call your: Primary Care Provider . "Provider Documentation" section prepared by Nicolas Zambrano. VTE Core Measure Inpt VTE Proph given/why not?: Kristal Olivier, SCD's
--- NOTE | 2016-07-19 10:59 | Hospitalist Progress Note ---
Hospitalist Progress Note Date of Service Jul 19, 2016. Subjective Pt evaluation today including: conversation w/ patient, physical exam, chart review, lab review, review of studies, review of inpatient medication list Pain: Minimal low back PO Intake: Good Voiding: no voiding problems The patient was seen and examined this morning. Pt reports minimal low back pain this morning but that it has improved since taking pain medication. She is tolerating a diet without difficulty. Pt has passed gas but not yet had a bowel movement. Currently 2nd unit of PRBCs is infusing at bedside for hgb 7.8 this morning. She denies lightheadedness, dizziness, sob, chest pain, palpitations. Pt has been doing well with PT/OT. All Other Systems: Reviewed and Negative (see HPI. ) Objective Vital Signs Date Time Temp Pulse Resp B/P Pulse Ox O2 Delivery O2 Flow Rate FiO2 07/19/16 07:22 Room Air 07/19/16 06:57 36.5 77 18 152/80 98 Room Air 07/19/16 00:15 Room Air 07/18/16 22:55 36.7 76 18 127/80 94 Room Air 07/18/16 20:52 73 135/78 07/18/16 19:20 Room Air 07/18/16 15:32 37.0 82 16 111/70 96 Room Air 07/18/16 11:35 36.9 90 18 145/81 96 Room Air 07/18/16 09:22 93 Room Air 07/18/16 08:02 36.8 95 18 155/74 93 Room Air Physical Exam General Appearance: WD/WN, no apparent distress, + obese (sitting up in bedside chair) Eyes: PERRL, EOMI ENT: hearing grossly normal, pharynx normal Neck: supple, no JVD Respiratory/Chest: lungs clear, normal breath sounds, no respiratory distress, no accessory muscle use Cardiovascular: regular rate, rhythm, no murmur Abdomen: normal bowel sounds, non tender, soft Extremities: non-tender, no pedal edema, no calf tenderness Neurologic/Psychiatric: alert, normal mood/affect, oriented x 3 Skin: normal color, warm/dry Notes: Back: Dressing in place, c/d/i, XENA drain out ~ 50 mL overnight. Laboratory Results Last 24 Hours Test 07/18/16 08:00 07/18/16 11:59 07/18/16 16:43 07/18/16 20:44 Bedside Glucose 156 mg/dl 139 mg/dl 135 mg/dl 127 mg/dl Test 07/19/16 05:20 07/19/16 06:46 White Blood Count 11.42 K/uL Red Blood Count 2.34 M/uL Hemoglobin 7.8 g/dL Hematocrit 22.0 % Mean Corpuscular Volume 94.0 fL Mean Corpuscular Hemoglobin 33.3 pg Mean Corpuscular Hemoglobin Concent 35.5 g/dl Platelet Count 260 K/uL Mean Platelet Volume 8.5 fL Neutrophils (%) (Auto) 77.9 % Lymphocytes (%) (Auto) 14.6 % Monocytes (%) (Auto) 6.9 % Eosinophils (%) (Auto) 0.0 % Basophils (%) (Auto) 0.0 % Neutrophils # (Auto) 8.89 K/uL Lymphocytes # (Auto) 1.67 K/uL Monocytes # (Auto) 0.79 K/uL Eosinophils # (Auto) 0.00 K/uL Basophils # (Auto) 0.00 K/uL RDW Standard Deviation 42.5 fL RDW Coefficient of Variation 12.4 % Immature Granulocyte % (Auto) 0.6 % Immature Granulocyte # (Auto) 0.07 K/uL Sodium Level 136 mmol/L Potassium Level 4.6 mmol/L Chloride Level 104 mmol/L Carbon Dioxide Level 21 mmol/L Anion Gap 11.0 mmol/L Blood Urea Nitrogen 26 mg/dl Creatinine 1.20 mg/dl Est Creatinine Clear Calc Drug Dose 65.2 ml/min Estimated GFR () 56.1 Estimated GFR (Non- 48.4 BUN/Creatinine Ratio 22.0 Random Glucose 124 mg/dl Calcium Level 8.6 mg/dl Magnesium Level 2.3 mg/dl Bedside Glucose 138 mg/dl Assessment and Plan This is a 60 yo F with PMHx of HTN, DM type II, hyperlipidemia, GERD who is s/p lumbar decompression and fusion of L1-L2 with cages placed at L3-L4 and L5-S by Dr. Patel on 07/17/16. S/p Lumbar decompression and fusion by Dr. Zambrano - POD # 2 - Pain control and anticoagulation per primary service - PT/OT on board - Bowel regimen - Hgb decreased to 7.8, initially was 11.9, - 2 U leukoreduced PRBCs infusing currently - VSS Hypertension- - continue amlodipine 5 mg daily, aspirin 325 mg daily, atenolol 50 mg QAM with holding parameters - mag oxide 400 mg by mouth every morning - losartan potassium 50 mg by mouth BID with hold parameters. Hyponatremia - Resolved- pt with good oral intake - follow with am labs Diabetes mellitus, type II - hold metformin 1000 mg BID for now - Glucose has been elevated ~ 130s but is likely due to preop steroids. Pt is tolerating diet. - ISS with Accu-Cheks achs Hypercholesterolemia- -continue lovastatin 40 mg by mouth every afternoon and niacin 2000 mg by mouth every afternoon. GERD- -continue pantoprazole 40 mg daily DVT ppx: SCDs, OOB per primary service CODE STATUS: Full Code Disposition: From home, d/c per primary team
--- NOTE | 2016-07-19 13:34 | PROGRESS NOTE ---
DATE: 07/19/2016 Postop day #2. She is doing quite well. Has excellent improvement of her leg pain. Vital signs stable. T-max 37.0. XENA drained 50 mL. Hematocrit today is 22. PHYSICAL EXAMINATION: On exam, she is in chair at bedside. Has good strength to testing. ASSESSMENT: Status post multilevel lumbar decompression and fusion. PLAN: At this time, we will transfuse her today. Anticipate continued drainage from significant multilevel procedure. We will initiate physical therapy again tomorrow and possibly discharge home Friday.
[2016-07-19] MEDS: RANITIDINE HCL 150 MG TAB PO SCH (21:17)
[2016-07-19] MEDS: DOCUSATE SODIUM/SENNA 50/8.6MG TAB PO SCH (21:17)
[2016-07-19] MEDS: ASPIRIN 325 MG ECTAB PO SCH (21:17)
[2016-07-19] MEDS: NIACIN 500 MG TAB IMMEDIATE RELEASE PO SCH (21:18)
[2016-07-20] MEDS: OXYCODONE HCL IR 5 MG TAB (IMMEDIATE RELEASE) PO PRN ×5 (01:53→19:30)
[2016-07-20] MEDS: POLYETHYLENE (MIRALAX) 17 GM PACK PO SCH ×3 (05:27→18:01)
[2016-07-20 06:38] VITALS: BP 125/70; PULSE 90; TEMP 37; O2SAT 97
[2016-07-20] MEDS: INSULIN ASPART 100 UNITS/ML 3 ML PEN SC SCH ×4 (07:22→21:00)
[2016-07-20] MEDS: AMLODIPINE BESYLATE 5 MG TAB PO SCH (07:23)
[2016-07-20] MEDS: LOSARTAN POTASSIUM 50 MG TAB PO SCH ×2 (07:23→21:09)
[2016-07-20] MEDS: MAGNESIUM OXIDE 400 MG TAB PO SCH (07:24)
[2016-07-20 08:04] LABS: COMPLETE YES; EOS % 0.5 %; IG% 0.3 %; LYMPH % 26.4 %; MEAN CELL VOLUME 91.8 fL (80-100); MEAN CORPUSCULAR HEMOGLOBIN 31.6 pg (25-34); MEAN CORPUSCULAR HGB CONC 34.5 g/dl (32-36); MEAN PLATELET VOLUME 8.1 fL (7.4-10.4); MONO % 14.5 %; NEUT % 58.3 %; PLATELET COUNT 217 K/uL (130-400); RED BLOOD COUNT 3.16 M/uL (4.2-5.4); WHITE BLOOD COUNT 9.48 K/uL (4.8-10.8)
[2016-07-20 08:23] LABS: BUN/CREATININE RATIO 20.2 (10-20); CALCIUM 8.7 mg/dl (8.5-10.1); CREATININE 0.92 mg/dl (0.60-1.20); MAGNESIUM 2.1 mg/dl (1.8-2.4)
--- NOTE | 2016-07-20 08:40 | Progress Note ---
Subjective Date of Service: Jul 20, 2016. Subjective Pt evaluation today including: conversation w/ patient, physical exam, chart review, lab review, review of studies, conversation w/ technical solutions consultant, review of inpatient medication list Up and walk with therapist, doing well, pain was well controlled, eating/voiding , no complaining Review of Systems Constitutional: No chills, No fatigue, No fever, No problem reported, No sweats , No weakness, No weight loss Eyes: No diplopia, No discharge, No eye pain, No redness, No worsening of vision ENT: No dental problems, No hearing loss, No nasal symptoms, No sore throat, No tinnitus, No trouble swallowing, No unusual epistaxis Respiratory: No cough, No dyspnea at rest, No dyspnea on exertion, No hemoptysis, No shortness of breath, No sputum, No wheezing Cardiac: No PND, No chest pain, No claudication, No edema, No orthopnea, No palpitations Abdomen: No constipation, No diarrhea, No nausea, No pain, No vomiting Musculoskeletal: + joint pain, No calf pain, No muscle pain, No swelling Female : No abnormal vaginal bleeding, No dysuria, No hematuria, No incontinence, No urinary frequency, No vaginal discharge Neurologic: No balance problems, No memory loss, No numbness/tingling, No paralysis, No vertigo, No weakness Psychiatric: No anhedonism, No anxiety, No depression symptoms, No insomnia, No substance abuse Heme: No abnormal bleeding/bruising, No clotting problems, No night sweats, No swollen lymph nodes Endo: No excessive thirst, No excessive urination, No fatigue Skin: No bleeding, No color change, No itch, No new/changing skin lesions, No rash Objective Vital Signs Date Time Temp Pulse Resp B/P Pulse Ox O2 Delivery O2 Flow Rate FiO2 07/20/16 06:38 37.0 90 18 125/70 97 Room Air 07/19/16 23:35 36.6 70 18 119/80 98 Room Air 07/19/16 21:14 70 150/84 07/19/16 19:56 Room Air 07/19/16 15:49 36.7 68 17 121/78 98 Room Air 07/19/16 14:12 96 07/19/16 11:48 36.8 76 18 138/83 100 07/19/16 11:27 36.7 70 17 119/71 99 07/19/16 10:55 36.4 72 18 113/73 100 07/19/16 10:41 37.0 70 18 130/79 99 07/19/16 10:04 36.6 65 18 118/76 99 07/19/16 09:28 36.8 67 16 123/72 99 07/19/16 09:01 36.7 70 18 117/77 96 07/19/16 08:50 36.3 73 16 109/65 100 Physical Exam General Appearance: WD/WN, no apparent distress, + obese Eyes: normal inspection, PERRL, EOMI, sclerae normal ENT: normal ENT inspection, hearing grossly normal, pharynx normal Neck: supple, no adenopathy, thyroid normal, no JVD, no carotid bruits, trachea midline Respiratory/Chest: chest non-tender, lungs clear, normal breath sounds, no respiratory distress, no accessory muscle use Cardiovascular: regular rate, rhythm, no edema, no gallop, no JVD, no murmur Abdomen: normal bowel sounds, non tender, soft, no organomegaly, no pulsatile mass Extremities: normal range of motion, non-tender, normal inspection, no pedal edema, no calf tenderness, normal capillary refill, pelvis stable Neurologic/Psychiatric: contract forester II-XII nml as tested, no motor/sensory deficits, alert, normal mood/affect, oriented x 3 Skin: normal color, warm/dry, no rash, + pertinent finding Lymphatic: no adenopathy Laboratory Results Last 24 Hours Test 07/19/16 12:34 07/19/16 17:10 07/20/16 06:30 07/20/16 07:55 Bedside Glucose 103 mg/dl 103 mg/dl 91 mg/dl White Blood Count 9.48 K/uL Red Blood Count 3.16 M/uL Hemoglobin 10.0 g/dL Hematocrit 29.0 % Mean Corpuscular Volume 91.8 fL Mean Corpuscular Hemoglobin 31.6 pg Mean Corpuscular Hemoglobin Concent 34.5 g/dl Platelet Count 217 K/uL Mean Platelet Volume 8.1 fL Neutrophils (%) (Auto) 58.3 % Lymphocytes (%) (Auto) 26.4 % Monocytes (%) (Auto) 14.5 % Eosinophils (%) (Auto) 0.5 % Basophils (%) (Auto) 0.0 % Neutrophils # (Auto) 5.53 K/uL Lymphocytes # (Auto) 2.50 K/uL Monocytes # (Auto) 1.37 K/uL Eosinophils # (Auto) 0.05 K/uL Basophils # (Auto) 0.00 K/uL RDW Standard Deviation 53.4 fL RDW Coefficient of Variation 15.8 % Immature Granulocyte % (Auto) 0.3 % Immature Granulocyte # (Auto) 0.03 K/uL Sodium Level 138 mmol/L Potassium Level 4.0 mmol/L Chloride Level 103 mmol/L Carbon Dioxide Level 23 mmol/L Anion Gap 12.0 mmol/L Blood Urea Nitrogen 19 mg/dl Creatinine 0.92 mg/dl Est Creatinine Clear Calc Drug Dose 85.0 ml/min Estimated GFR () 77.3 Estimated GFR (Non- 66.7 BUN/Creatinine Ratio 20.2 Random Glucose 91 mg/dl Calcium Level 8.7 mg/dl Magnesium Level 2.1 mg/dl Assessment and Plan his is a 60 yo F with PMHx of HTN, DM type II, hyperlipidemia, GERD who is s/p lumbar decompression and fusion of L1-L2 with cages placed at L3-L4 and L5-S by Dr. Patel on 07/17/16. S/p Lumbar decompression and fusion by Dr. Zambrano - POD # 3 - Pain control and anticoagulation per primary service - PT/OT on board - Bowel regimen - Acute blood loss anemia with Hgb decreased to 7.8, initially was 11.9, which required 2 U leukoreduced PRBCs infusing, today's hemoglobin up to 10 - VSS Hypertension- - continue amlodipine 5 mg daily, aspirin 325 mg daily, atenolol 50 mg QAM with holding parameters - mag oxide 400 mg by mouth every morning - losartan potassium 50 mg by mouth BID with hold parameters. Hyponatremia - Resolved- pt with good oral intake, stable - follow with am labs Diabetes mellitus, type II - hold metformin 1000 mg BID for now - Glucose has been elevated ~ 130s but is likely due to preop steroids. Pt is tolerating diet. - ISS with Accu-Cheks achs, follow-up with PCP to check A1c if needed Hypercholesterolemia- -continue lovastatin 40 mg by mouth every afternoon and niacin 2000 mg by mouth every afternoon. GERD- -continue pantoprazole 40 mg daily Continue current care DVT ppx: SCDs, OOB per primary service CODE STATUS: Full Code Disposition: From home, d/c per primary team Continued [facility] stay due to: home environment unsafe for pt Discharge planning: home
--- NOTE | 2016-07-20 09:48 | PROGRESS NOTE ---
DATE: 07/20/2016 SUBJECTIVE: Postop day #3. Back pain is controlled. Leg pain improved. Vital signs stable. T-max 37.0. XENA drained 50 mL. Hematocrit this a.m. is 29.0. PHYSICAL EXAMINATION: The patient is in chair at bedside. Demonstrates good strength to testing. ASSESSMENT: Status post lumbar decompression and fusion. PLAN: At this time, she is progressing nicely. XENA drain still significant, but decreasing appropriately. We will maintain the XENA drain another 24 hours and anticipate discharge home tomorrow.
[2016-07-20 15:06] VITALS: BP 101/62; PULSE 78; TEMP 36.6; O2SAT 98
[2016-07-20 15:07] VITALS: BP 103/66
[2016-07-20 21:06] VITALS: BP 122/71; PULSE 75
[2016-07-20] MEDS: DOCUSATE SODIUM/SENNA 50/8.6MG TAB PO SCH (21:09)
[2016-07-20] MEDS: NIACIN 500 MG TAB IMMEDIATE RELEASE PO SCH (21:09)
[2016-07-20] MEDS: RANITIDINE HCL 150 MG TAB PO SCH (21:09)
[2016-07-20] MEDS: ASPIRIN 325 MG ECTAB PO SCH (21:10)
[2016-07-20 23:05] VITALS: BP 124/82; PULSE 86; TEMP 37.1; O2SAT 94
[2016-07-21] MEDS: POLYETHYLENE (MIRALAX) 17 GM PACK PO SCH ×4 (00:14→11:41)
[2016-07-21] MEDS: OXYCODONE HCL IR 5 MG TAB (IMMEDIATE RELEASE) PO PRN ×3 (02:59→14:05)
[2016-07-21 06:52] VITALS: BP 148/75; PULSE 93; TEMP 36.7; O2SAT 95
[2016-07-21 07:03] VITALS: BP 149/80; PULSE 92; TEMP 36.7; O2SAT 94
[2016-07-21 08:00] VITALS: O2SAT 95
[2016-07-21] MEDS: INSULIN ASPART 100 UNITS/ML 3 ML PEN SC SCH ×2 (08:00→11:42)
[2016-07-21] MEDS: AMLODIPINE BESYLATE 5 MG TAB PO SCH (08:06)
[2016-07-21] MEDS: LOSARTAN POTASSIUM 50 MG TAB PO SCH (08:07)
[2016-07-21] MEDS: MAGNESIUM OXIDE 400 MG TAB PO SCH (08:08)
--- NOTE | 2016-07-21 09:48 | Progress Note ---
Subjective Date of Service: Jul 21, 2016. Subjective Pt evaluation today including: conversation w/ patient, physical exam, chart review, lab review, review of studies, conversation w/ change consultant, review of inpatient medication list Discontinue suppository treatment when I seem her, has been up and walk, no other complaint, Review of Systems Constitutional: + fatigue, No chills, No fever, No problem reported, No sweats , No weakness, No weight loss Eyes: No diplopia, No discharge, No eye pain, No redness, No worsening of vision ENT: No dental problems, No hearing loss, No nasal symptoms, No sore throat, No tinnitus, No trouble swallowing, No unusual epistaxis Respiratory: No cough, No dyspnea at rest, No dyspnea on exertion, No hemoptysis, No shortness of breath, No sputum, No wheezing Cardiac: No PND, No chest pain, No claudication, No edema, No orthopnea, No palpitations Abdomen: + constipation, No diarrhea, No nausea, No pain, No vomiting Musculoskeletal: No calf pain, No joint pain, No muscle pain, No swelling Female : No abnormal vaginal bleeding, No dysuria, No hematuria, No incontinence, No urinary frequency, No vaginal discharge Neurologic: No balance problems, No memory loss, No numbness/tingling, No paralysis, No vertigo, No weakness Psychiatric: No anhedonism, No anxiety, No depression symptoms, No insomnia, No substance abuse Heme: No abnormal bleeding/bruising, No clotting problems, No night sweats, No swollen lymph nodes Endo: No excessive thirst, No excessive urination, No fatigue Skin: No bleeding, No color change, No itch, No new/changing skin lesions, No rash Objective Vital Signs Date Time Temp Pulse Resp B/P Pulse Ox O2 Delivery O2 Flow Rate FiO2 07/21/16 08:00 95 Room Air 07/21/16 07:03 36.7 92 19 149/80 94 Room Air 07/21/16 06:52 36.7 93 18 148/75 95 Room Air 07/20/16 23:05 37.1 86 16 124/82 94 Room Air 07/20/16 21:06 75 122/71 07/20/16 19:30 Room Air 07/20/16 15:07 103/66 07/20/16 15:06 36.6 78 18 101/62 98 Room Air Physical Exam General Appearance: WD/WN, no apparent distress, + obese Eyes: normal inspection, PERRL, EOMI, sclerae normal ENT: normal ENT inspection, hearing grossly normal, pharynx normal Neck: supple, no adenopathy, thyroid normal, no JVD, no carotid bruits, trachea midline Respiratory/Chest: chest non-tender, lungs clear, normal breath sounds, no respiratory distress, no accessory muscle use Cardiovascular: regular rate, rhythm, no edema, no gallop, no JVD, no murmur Abdomen: normal bowel sounds, non tender, soft, no organomegaly, no pulsatile mass Extremities: non-tender, normal inspection, no pedal edema, no calf tenderness , normal capillary refill, pelvis stable Neurologic/Psychiatric: marketing and communications officer II-XII nml as tested, no motor/sensory deficits, alert, normal mood/affect, oriented x 3 Skin: normal color, warm/dry, no rash Lymphatic: no adenopathy Laboratory Results Last 24 Hours Test 07/20/16 11:58 07/20/16 16:41 07/20/16 20:27 07/21/16 06:37 Bedside Glucose 83 mg/dl 82 mg/dl 110 mg/dl 125 mg/dl Assessment and Plan his is a 60 yo F with PMHx of HTN, DM type II, hyperlipidemia, GERD who is s/p lumbar decompression and fusion of L1-L2 with cages placed at L3-L4 and L5-S by Dr. Patel on 07/17/16. S/p Lumbar decompression and fusion by Dr. Zambrano - POD # 4 - Pain control and anticoagulation per primary service - PT/OT on board - Bowel regimen - Acute blood loss anemia with Hgb decreased to 7.8, initially was 11.9, which required 2 U leukoreduced PRBCs infusing, hemoglobin up to 10, stable Hypertension , stable, continue current medication Hyponatremia - Resolved- pt with good oral intake, stable - follow with am labs Diabetes mellitus, type II - hold metformin 1000 mg BID for now - Glucose has been in acceptable level - ISS with Accu-Cheks achs, follow-up with PCP to check A1c if needed Hypercholesterolemia- -continue lovastatin 40 mg by mouth every afternoon and niacin 2000 mg by mouth every afternoon. GERD- -continue pantoprazole 40 mg daily Continue current care DVT ppx: SCDs, OOB per primary service CODE STATUS: Full Code Disposition: From home, d/c per primary team Continued [facility] stay due to: home environment unsafe for pt Discharge planning: home
[2016-07-21] MEDS ORDERED: SOD PHOSPHATE/SOD BIPHOSPHATE ENEMA 132 ML BTL PR STA (12:29)
[2016-07-21 14:14] VITALS: BP 149/80; PULSE 92; TEMP 36.7; O2SAT 95
--- NOTE | 2016-07-22 02:04 | DISCHARGE SUMMARY ---
PRINCIPAL DIAGNOSIS: Multilevel spondylosis and spinal stenosis. HOSPITAL COURSE FOLLOWS: On July 17, the patient underwent multilevel lumbar decompression and fusion, tolerated this well and taken to the orthopedic floor postoperatively. Postop day #1, he was up and ambulatory, progressed to postop day #2. Postop day #3, she continued to improve. Bowels working. Subsequently, on postop day #4, discharged home. Discharge orders and instructions found on the chart for further review.
== END 2016-07-21 15:45 | disposition home health service (06) | DRG 460 ==
LOC: ENRESERVDT → ENRESERVTM → C.ACU 05:17 → C.3E 07:00
PROVIDERS: ADMIT Orthopaedic Surgery Orthopaedic Surgery of the Spine; ATTEND Orthopaedic Surgery Orthopaedic Surgery of the Spine
PROC: 0ST40ZZ Resection of Lumbosacral Disc, Open Approach (ICD-10-PCS; principal; 2016-07-17 07:30)
PROC: 0SG10A1 (ICD-10-PCS; principal; 2016-07-17 07:30)
PROC: 3E0U0GB Introduction of Recombinant Bone Morphogenetic Protein into Joints, Open Approach (ICD-10-PCS; principal; 2016-07-17 07:30)
PROC: 0SG30J1 Fusion of Lumbosacral Joint with Synthetic Substitute, Posterior Approach, Posterior Column, Open Approach (ICD-10-PCS; principal; 2016-07-17 07:30)
DX: M43.17 Spondylolisthesis, lumbosacral region (principal); D62 Acute posthemorrhagic anemia; E87.1 Hypo-osmolality and hyponatremia; M48.07 Spinal stenosis, lumbosacral region; E11.65 Type 2 diabetes mellitus with hyperglycemia; E78.00 Pure hypercholesterolemia, unspecified; I10 Essential (primary) hypertension; K21.9 Gastro-esophageal reflux disease without esophagitis; M51.36 Other intervertebral disc degeneration, lumbar region; Z87.891 Personal history of nicotine dependence; Z96.659 Presence of unspecified artificial knee joint; Z82.49 Family history of ischemic heart disease and other diseases of the circulatory system

== ENCOUNTER → 2016-08-29 | Outpatient (CLI) | payer BC ==
[~2016-08-29] MED LIST changes: +ACET-1256 PO; +CYCL10TA6 PO; -DICL50TA3 PO; +METH4PAK PO; +RXC5 PO
[2016-08-29 11:58] LABS: BLOOD UREA NITROGEN 17 mg/dl (7-18); BUN/CREATININE RATIO 17.9 (10-20); CALCIUM 9.9 mg/dl (8.5-10.1); CARBON DIOXIDE 26 mmol/L (21-32); CHLORIDE 102 mmol/L (98-107); CREATININE 0.94 mg/dl (0.60-1.20); GLUCOSE 110 mg/dl (70-99); POTASSIUM 4.4 mmol/L (3.5-5.1); SODIUM 137 mmol/L (136-145)
== END | disposition home or self-care (01) ==
LOC: C.LAB1850 10:28
PROVIDERS: ATTEND Family Medicine
DX: N28.9 Disorder of kidney and ureter, unspecified (principal)

== ENCOUNTER 2016-12-11 23:15 | Emergency (ER) | payer BC ==
[~2016-12-11] VITALS: Ht 170.2 cm; Wt 120.9 kg
[~2016-12-11 23:15] MED LIST changes: -METH4PAK PO
[2016-12-11 23:24] VITALS: TEMP 36.7; Ht 170.2 cm; Wt 120.9 kg
[2016-12-11] MEDS ORDERED: DIAZEPAM 5MG TAB PO STA (23:41)
[2016-12-12 00:30] VITALS: BP 160/90; PULSE 92; O2SAT 96
[2016-12-12] MEDS ORDERED: METH4PAK PO (00:30)
--- NOTE | 2016-12-12 00:30 | EMERGENCY ROOM VISIT NOTE ---
History Report prepared by Ruth: Samara Ron Under the Supervision of: Dr. James Duenas M.D. First contact with patient: 23:36 Chief Complaint: BACK PAIN Stated Complaint: SEVERE BACK PAIN History of Present Illness The patient is a 61 year old female who presents to the Emergency Room with complaints of worsening lower back pain starting 1 week ago. The patient had back surgery 6 months ago. She was doing well until last week when she was on her riding mower and it lurched forward. She has been having lower back pain since and she is worried that she might have injured her back. She has soreness in her back which is worsening. She states the pain tonight was excruciating. The pain worsens when she moves. She took a muscle relaxer this morning to no significant relief. She denies any leg pain, incontinence, leg weakness, fever, or chills. She denies any history of diabetes. She did have high sugars for a day after receiving steroids as an inpatient. Source of History: patient Onset: 1 week ago Position: back (lower) Symptom Intensity: excruciating Quality: other (sore) Timing: worsening Modifying Factors (Worsening): movement Associated Symptoms: No fevers, No chills Note: Pt denies leg pain, incontinence, leg weakness. Review of Systems See HPI for pertinent positives & negatives. A total of 6 systems reviewed and were otherwise negative. Past Medical & Surgical Medical Problems: (1) Hypertension (2) Lumbar stenosis with neurogenic claudication Surgical Problems: (1) S/P lumbar spinal fusion Family History FHx: heart disease Hypertension Social History Smoking Status: Former Smoker Drug Use: none Marital Status: single Housing Status: lives alone Occupation Status: retired Current/Historical Medications Scheduled Acetaminophen (Tylenol), 1,000 MG PO prn Amlodipine (Norvasc), 5 MG PO DAILY Aspirin Enteric Coated (Ecotrin Or Generic *), 325 MG PO QPM Atenolol (Tenormin), 50 MG PO QAM Cholecalciferol (Vitamin D3), 1 CAP PO QAM Cyclobenzaprine Hcl (Flexeril), 1 TAB PO prn Fish Oil (Maddock-3), 2,000 MG PO QPM Losartan Potassium (Cozaar), 50 MG PO BID Lovastatin (Mevacor), 80 MG PO QPM Magnesium Oxide (Mag-Ox), 400 MG PO QAM Metformin HCL (Glucophage *), 1,000 MG PO BID Methylprednisolone (Medrol Dosepak), 1 PKT PO UD Multivitamin (Multivitamin), 1 TAB PO QPM Niacin (Niacin), 2,000 MG PO QPM Pantoprazole (Protonix), 40 MG PO QAM [Calcium], 600 MG PO QPM [Co Q10], 1 TAB PO PRN Scheduled PRN Oxycodone HCl (Oxycodone HCl), 5-10 MG PO Q4H PRN for Moderate - severe pain Allergies Coded Allergies: No Known Allergies (Verified , 07/17/16) Physical Exam Vital Signs Date Time Temp Pulse Resp B/P (MAP) Pulse Ox O2 Delivery O2 Flow Rate FiO2 12/12/16 00:30 92 18 160/90 96 Room Air 12/11/16 23:24 36.7 122 20 171/96 96 Room Air Physical Exam GENERAL: Patient is uncomfortable appearing and in mild distress. HEENT: No acute trauma, normocephalic atraumatic, mucous membranes moist, no nasal congestion, no scleral icterus. NECK: No stridor, no adenopathy, no meningismus, trachea is midline. LUNGS: No dyspnea. Clear to auscultation and equal bilaterally. No wheeze, no rhonchi. HEART: Regular rate and rhythm. No murmurs, rubs, gallops appreciated. BACK: Vague tenderness over mid lumbar spine. EXTREMITIES: Normal motion all extremities, no cyanosis, no edema. NEUROLOGIC: Alert and oriented, no acute motor or sensory deficits, no focal weakness, cranial nerves grossly intact. SKIN: No rash, no jaundice, no diaphoresis. Medical Decision & Procedures ER Provider Diagnostic Interpretation: X ray results are stated below per my interpretation: 4 view Lumbar Spine X-ray: Mild compression deformity of L3 appearing somewhat similar to previous image. Lumbar spinal hardware intact without fracture. Similar to previous imaging. Medications Administered Medications (Trade) Dose Ordered Sig/Alicia Route Start Time Stop Time Status Last Admin Dose Admin Diazepam (Valium Tab) 5 mg NOW STAT PO 12/11/16 23:41 12/11/16 23:43 DC 12/11/16 23:46 5 MG Prednisone (PredniSONE TAB) 40 mg NOW STAT PO 12/12/16 00:28 12/12/16 00:29 DC 12/12/16 00:36 40 MG ED Course 2337: The patient was evaluated in room B7. A complete history and physical exam was performed. 2341: Diazepam 5 mg PO. 0026: I reevaluated the patient. She is feeling better and is comfortably going home. She will call Dr. Zambrano in the morning. I discussed the results and treatment plan with her. She verbalized understanding and agreement. She will be discharged home. 0028: Prednisone 40 mg PO. Medical Decision Differential: Musculoskeletal, Disc Herniation, Fracture, Cord Compression, Discitis, Infectious, Aortic Pathology, Renal Colic, UTI/Pyelonephritis, Acute Exacerbation of Chronic Pain, Sciatica, Cauda Equina, amongst other pathologies entertained. Medication Reconciliation: I attest that I have personally reviewed the patient 's current medication list. Blood Pressure Screening: Patient was found to have a slightly elevated blood pressure due to circumstances. I do not believe that the patient requires hypertension monitoring. 61 yr old male with low back pain after mowing a few days ago. She has low back surgery several months ago. No neuro deficits and only pain is issue. Imaging looks OK. Will place on steroids for inflammatory issues. She will contact her surgeon tomorrow. Declines further pain medications as she has some at home and doesn't like taking them. Impression Primary Impression: Strain of lumbar region Scribe Attestation The scribe's documentation has been prepared under my direction and personally reviewed by me in its entirety. I confirm that the note above accurately reflects all work, treatment, procedures, and medical decision making performed by me. Departure Information Dispostion Home / Self-Care Prescriptions Methylprednisolone (MEDROL DOSEPAK) 4 Mg Maikol 1 PKT PO UD for 6 Days, #1 PKT Prov: James Duenas M.D. 12/12/16 Referrals Mei Curtis MD (PCP) Patient Instructions ED Sprain Strain Lumbar, My [facility] Additional Instructions Please call your surgeon tomorrow to discuss your findings.
--- NOTE | 2016-12-12 07:21 | DIAGNOSTIC IMAGING REPORT ---
L-SPINE MIN 4 VIEWS ROUTINE CLINICAL HISTORY: Low back pain. History of spinal surgery. COMPARISON STUDY: Intraoperative study dated 07/17/2016 FINDINGS: There are advanced multilevel degenerative changes. There are postsurgical changes of discectomies and interbody fusions at the L3-4 and L5-S1 levels. There is mild anterior listhesis of L5 on S1. There is mild retrolisthesis of L2 on L3. There are laminectomy defects. There are postsurgical changes of a posterior pedicle screw fixation with pedicle screws present from the L2 through the S1 level with adjoining spinal rods. Bilateral sacral bolts are also visualized. No acute fractures are visualized. IMPRESSION: Postsurgical and advanced degenerative change. No acute fractures are visualized. Electronically signed by: Malcolm Forbes M.D. 12/12/2016 7:19 AM Dictated Date/Time: 12/12/2016 7:17 AM
== END 2016-12-12 00:37 | disposition home or self-care (01) ==
LOC: C.EDB 23:16
DX: S39.012A Strain of muscle, fascia and tendon of lower back, initial encounter (principal); X58.XXXA Exposure to other specified factors, initial encounter; Z98.890 Other specified postprocedural states; I10 Essential (primary) hypertension; M48.02 Spinal stenosis, cervical region; Z98.1 Arthrodesis status; Z87.891 Personal history of nicotine dependence; Z79.82 Long term (current) use of aspirin; Z79.84 Long term (current) use of oral hypoglycemic drugs; Z79.899 Other long term (current) drug therapy; Z82.49 Family history of ischemic heart disease and other diseases of the circulatory system

== ENCOUNTER → 2017-03-06 | Outpatient (CLI) | payer BC ==
--- NOTE | 2017-03-06 12:44 | MAMMOGRAPHY REPORT ---
BILATERAL DIGITAL SCREENING MAMMOGRAM WITH CAD: 03/06/2017 CLINICAL HISTORY: Routine screening. Patient has no complaints. TECHNIQUE: Current study was also evaluated with a Computer Aided Detection (CAD) system. Bilateral CC and MLO views were obtained. COMPARISON: Comparison is made to exams dated: 09/08/2015 mammogram, 08/03/2014 mammogram, 08/02/2013 michel mogram, 07/31/2012 mammogram, 07/26/2011 mammogram, and 07/25/2010 mammogram - [facility] er. BREAST COMPOSITION: The tissue of both breasts is almost entirely fatty. FINDINGS: No suspicious masses, calcifications, or areas of architectural distortion are noted in ei ther breast. There has been no significant interval change compared to prior exams. IMPRESSION: ACR BI-RADS CATEGORY 1: NEGATIVE There is no mammographic evidence of malignancy. A 1 year screening mammogram is recommended. The pa tient will receive written notification of the results. Approximately 10% of breast cancers are not detected with mammography. A negative mammographic report should not delay biopsy if a clinically suggestive mass is present. Yenny Kevin M.D. ah/:03/06/2017 12:01:59 Oyster Tonger: Alison Chilel RT(R)(M)(BD), [facility] letter sent: Normal 1/2 BI-RADS Code: ACR BI-RADS Category 1: Negative
== END | disposition home or self-care (01) ==
LOC: C.MAMM 11:10
PROVIDERS: ATTEND Family Medicine
DX: Z12.31 Encounter for screening mammogram for malignant neoplasm of breast (principal)

== ENCOUNTER 2021-01-04 10:07 | Inpatient (IN) ==
--- NOTE | 2020-12-07 09:20 | PAT Medication Instructions ---
Medication Instructions Date of Service December 07, 2020 Home Medications Medication Instructions Recorded diclofenac sodium 50 mg 50 mg PO BID #180 tab 07/25/20 tablet,delayed release metformin 1,000 mg tablet 1,000 mg PO BID #180 tab 07/25/20 pantoprazole 20 mg tablet,delayed 20 mg PO BID #180 tab 07/25/20 release losartan 100 mg tablet 100 mg PO QAM #90 tab 12/05/20 aspirin 81 mg tablet,delayed release 81 mg PO HS cholecalciferol (vitamin D3) 50 mcg (2,000 unit) capsule 2,000 units PO DAILY magnesium oxide 250 mg PO Q2D diclofenac sodium 50 mg tablet,delayed release 50 mg PO BID metformin 1,000 mg tablet 1,000 mg PO BID pantoprazole 20 mg tablet,delayed release 20 mg PO BID acetaminophen [Tylenol Extra Strength] 500 mg PO Q6H PRN amlodipine 5 mg PO HS atenolol 50 mg PO QAM lovastatin 80 mg PO HS multivitamin 0.5 tab PO BID losartan 100 mg tablet 100 mg PO QAM ASK your surgeon for instructions diclofenac sodium 50 mg tablet,delayed release 50 mg PO BID DO NOT take the morning of surgery cholecalciferol (vitamin D3) 50 mcg (2,000 unit) capsule 2,000 units PO DAILY magnesium oxide 250 mg PO Q2D metformin 1,000 mg tablet 1,000 mg PO BID multivitamin 0.5 tab PO BID losartan 100 mg tablet 100 mg PO QAM Take morning of surgery With a small sip of water, OTHERWISE NOTHING TO EAT OR DRINK AFTER MIDNIGHT: pantoprazole 20 mg tablet,delayed release 20 mg PO BID acetaminophen [Tylenol Extra Strength] 500 mg PO Q6H PRN (okay to take up to 4 hours prior to surgery if needed) atenolol 50 mg PO QAM Take evening before surgery aspirin 81 mg tablet,delayed release 81 mg PO HS (continued as normal unless told otherwise by surgeon) metformin 1,000 mg tablet 1,000 mg PO BID pantoprazole 20 mg tablet,delayed release 20 mg PO BID acetaminophen [Tylenol Extra Strength] 500 mg PO Q6H PRN (if needed) amlodipine 5 mg PO HS lovastatin 80 mg PO HS multivitamin 0.5 tab PO BID Other Notes If you have any questions please call us at [phone] or [phone] or [phone] or [phone]
--- NOTE | 2020-12-08 12:12 | Anesthesiology Consultation ---
Date of Service December 08, 2020 Assessment & Plan (1) Encounter for pre-operative examination: COVID screening: Per assessment on 12/08: Travel screen- Planning to travel to [place], [place] 12/14-12/24. [place] and wear mask/social distance/follow Covid precaution guidelines. Return from travel will be > 5 days prior to preop Covid testing. No known COVID-19 positive contacts or current COVID-19 related symptoms. Surgeon arranging preop COVID testing (scheduled 01/02; [place]). Awaiting results. Chart Review Chart Review: Acceptable Risk for Surgery (pending surgeon-ordered PCP clearance) and Patient seen in Pre Admission Testing Teaching & Discussion Pre-Anesthesia Teaching/Discussion Notes: Instructed NPO after midnight before surgery,except medications with 15 cc of water. Medication instructions provided according to the PAT guidelines. History Surgery Operation Date: 01/04/21 07:00 Proposed Procedures p Left Total Knee Arthroplasty - Raul Gauthier MD Height/Weight Height: 5 ft 7 in Weight: 108.4 kg Allergies Allergy/AdvReac Type Severity Reaction Status Date / Time No Known Allergies Allergy Unknown Verified 11/29/20 10:57 Medications Home Medications Medication Instructions Recorded Confirmed Last Taken aspirin 81 mg tablet,delayed 81 mg PO HS 03/05/19 11/29/20 Unknown release cholecalciferol (vitamin D3) 50 2,000 units PO DAILY 03/05/19 11/29/20 Unknown mcg (2,000 unit) capsule magnesium oxide 250 mg PO Q2D cap 06/08/20 11/29/20 Unknown diclofenac sodium 50 mg 50 mg PO BID #180 tab 07/25/20 11/29/20 Unknown tablet,delayed release metformin 1,000 mg tablet 1,000 mg PO BID #180 tab 07/25/20 11/29/20 Unknown pantoprazole 20 mg tablet,delayed 20 mg PO BID #180 tab 07/25/20 11/29/20 Unknown release acetaminophen [Tylenol Extra 500 mg PO Q6H PRN 11/29/20 11/29/20 Unknown Strength] amlodipine 5 mg PO HS 11/29/20 11/29/20 Unknown atenolol 50 mg PO QAM 11/29/20 11/29/20 Unknown lovastatin 80 mg PO HS 11/29/20 11/29/20 Unknown multivitamin 0.5 tab PO BID 11/29/20 11/29/20 Unknown losartan 100 mg tablet 100 mg PO QAM #90 tab 12/05/20 Unknown Past Medical History Medical History Dyslipidemia Dysmetabolic syndrome X Esophageal reflux Hyperglycemia Hypertension Insomnia Lumbar stenosis with neurogenic claudication Obesity Osteoarthritis Renal insufficiency Per records, pt denies Exercise / Class Metabolic Activity II 4-5 Yardwork/Stairs/Walk up hill (one flight of stairs (no chest pain, no sob) but is difficult to do r/t knee pain) Past Family History Family History Mother Myocardial infarction Family/Other Family history of diabetes mellitus NEPHEW Denies family history of Ovarian cancer Prostate cancer Breast cancer Colorectal cancer Past Surgical History Surgical History History of ankle surgery Right (+ hardware) History of colonoscopy S/P knee replacement Right S/P spinal fusion Past Anesthesia History No Hx of Anesthesia Complications and No Family Hx of Anesthesia Complications History of PONV No Hx of PONV and No Hx of Motion Sickness Social History Smoking Status: Former smoker Do You Dip or Chew Tobacco: No Smoking End Date: Quit 10 years ago (hx 10 cigs/day) Hx Alcohol Use: Yes Alcohol type: hard liquor alcohol intake frequency: a few times a week Hx Substance Use: No Review of Systems No snoring. Patient denies chest pain, shortness of breath, dyspnea on exertion, fever, chills, cough, wheezing, palpitations. Physical Exam Vital Signs VITALS BP 155/87 P 62 TEMP 98.4 SP02 94%RA RESP 18 PHYSICAL Full cervical extension range of motion. Full TMJ range of motion. TMD 3 finger breaths Mallampati Score 3 Dentition: several missing (molars/sides), caps/crowns (molars) Lungs: clear throughout to auscultation Cardiac: regular rate and rhythm, no murmurs noted Spine: normal Carotid arteries: negative bruit Extremities: no edema Lab Results Anesthesia Preop Results Results Anesthesia Widget: WBC 8.72 K/uL (4.8-10.8) 12/08/20 Hgb 13.1 g/dL (12.0-16.0) 12/08/20 Hct 39.2 % (37-47) 12/08/20 Plt 426 K/uL (130-400) H 12/08/20 Na 136 mmol/L (136-145) 12/08/20 K 4.9 mmol/L (3.5-5.1) 12/08/20 Cl 104 mmol/L (98-107) 12/08/20 CO2 24 mmol/L (21-32) 12/08/20 BUN 34 mg/dl (7-18) H 12/08/20 Creat 1.33 mg/dl (0.6-1.2) H 12/08/20 Glucose Level 106 mg/dl (70-99) H 12/08/20 PT 9.6 Seconds (9.0-12.0) 12/08/20 PTT 25.4 Seconds (21.0-31.0) 12/08/20 INR 0.9 (0.9-1.1) 12/08/20 HA1c 5.3 % (4.5-5.6) 12/08/20 Urine Color Yellow 12/08/20 Urine Appearance Clear (Clear) 12/08/20 Urine pH 5.5 (4.5-7.5) 12/08/20 Urine Specific Hitchcock 1.012 (1.000-1.030) 12/08/20 Urine Protein Negative (Negative) 12/08/20 Urine Glucose (UA) Negative (Negative) 12/08/20 Urine Ketones Negative (Negative) 12/08/20 Urine Blood Negative (Negative) 12/08/20 Urine Nitrite Negative (Negative) 12/08/20 Urine Bilirubin Negative (Negative) 12/08/20 Urine Urobilinogen Negative (Negative) 12/08/20 Urine Leukocyte Esterase 1+ (Negative) H 12/08/20 Urine WBC (Auto) 5-10 /hpf (0-5) H 12/08/20 Urine RBC (Auto) 0-4 /hpf (0-4) 12/08/20 Urine Hyaline Casts (Auto) 1-5 /lpf (0-5) 12/08/20 Urine Epithelial Cells (Auto) >30 /lpf (0-5) H 12/08/20 Urine Bacteria (Auto) Negative (Negative) 12/08/20 Blood Type O Positive 12/08/20 Antibody Screen NEGATIVE 12/08/20 Testing Electrocardiogram Date: 12/08/20 Sinus rhythm with first-degree AV block at 64 bpm. No significant change compared to 06/17/16 per video technician review. Chest X-Ray Date: 12/08/20 FINDINGS: No pneumothorax. No pleural effusions. The heart is top normal in size. This remains unchanged. No evidence for pulmonary edema. There is a punctate calcified granuloma within the right midlung zone. Increased markings in the lung bases anteriorly may be secondary to the patient's suboptimal inspiration and kyphotic deformity. There is severe disc space narrowing at L1- L2. Partially visualized lumbar spinal fusion hardware is noted. IMPRESSION: Chronic changes as described above. No acute process within the chest.
--- NOTE | 2021-01-03 19:41 | History & Physical Report ---
Date of Service January 03, 2021 Assessment & Plan (1) Primary osteoarthritis of left knee: Treatment options discussed with patient. She has failed conservative management as above. She would like to proceed with surgical intervention. Risks, benefits and alternatives to surgery including but not limited to infection, DVT, pain, stiffness, need for revision surgery, damage to blood vessels, damage to nerves, PE, , were discussed with the patient and they wish to proceed. Plan for left total knee arthroplasty at [facility] on 01/04/[address] Gauthier. Will plan on HHPT post discharge, as well as aspirin 81mg BID x 1 mo post op for DVT prophylaxis. All questions answered. She will follow up post operatively. History of Present Illness Chief Complaint: Left knee pain Primary Care Provider: Mei Curtis MD 65 year old female with PMHx significant for HTN, high cholesterol, GERD who presents with longstanding left knee pain. She has endstage OA left knee. Pain is interfering with her daily and leisure activities. She has failed conservative management including cortisone injections, DESAI injections, NSAIDs, and bracing. She previously has had right knee replaced and has done well. She would like to proceed with left knee replacement. Patient denies headaches, sweats, fevers, chills, double vision, blurred vision, cough, sore throat, dysphagia, chest pain, sob, wheezing, n/v/d/c, numbness, tingling, fatigue, urinary symptoms, mood disorders. ROS positive for left knee pain and stiffness. Allergies Allergy/AdvReac Type Severity Reaction Status Date / Time No Known Allergies Allergy Unknown Verified 12/11/20 15:06 Home Medications Medication Instructions Recorded Confirmed Type aspirin 81 mg tablet,delayed 81 mg PO HS 03/05/19 12/12/20 History release cholecalciferol (vitamin D3) 50 2,000 units PO DAILY 03/05/19 12/12/20 History mcg (2,000 unit) capsule magnesium oxide 250 mg PO Q2D cap 06/08/20 12/12/20 History diclofenac sodium 50 mg 50 mg PO BID #180 tab 07/25/20 12/12/20 Rx tablet,delayed release metformin 1,000 mg tablet 1,000 mg PO BID #180 tab 07/25/20 12/12/20 Rx pantoprazole 20 mg tablet,delayed 20 mg PO BID #180 tab 07/25/20 12/12/20 Rx release acetaminophen [Tylenol Extra 500 mg PO Q6H PRN 11/29/20 12/12/20 History Strength] amlodipine 5 mg PO HS 11/29/20 12/12/20 History atenolol 50 mg PO QAM 11/29/20 12/12/20 History lovastatin 80 mg PO HS 11/29/20 12/12/20 History multivitamin 0.5 tab PO BID 11/29/20 12/12/20 History losartan 100 mg tablet 100 mg PO QAM #90 tab 12/05/20 12/12/20 Rx Past Med/Surg History Medical History Dyslipidemia Dysmetabolic syndrome X Esophageal reflux Hyperglycemia Hypertension Insomnia Lumbar stenosis with neurogenic claudication Obesity Osteoarthritis Renal insufficiency Surgical History History of ankle surgery History of colonoscopy S/P knee replacement S/P spinal fusion Family History Mother Myocardial infarction Family/Other Family history of diabetes mellitus Denies family history of Ovarian cancer Prostate cancer Breast cancer Colorectal cancer Social History Smoking Status: Former smoker Age Started Using Tobacco: 18; Age Quit Using Tobacco: 50; packs per day: 0.5; Years Smoked: 32; Number of Years Since Quit: 15; Second Hand Exposure: No; Hx Alcohol Use: Yes Alcohol type: hard liquor Hx Substance Use: No Preferred Language: Dutch Communication Ability: Effective Visual Impairment: No Limitations Hearing Ability: Normal High Man Required: No Beliefs That Will Affect Care: None marital status: Single Current Living Situation: Alone current occupational status: retired Feels Safe at Home: Yes Childhood Exposure to Second-Hand Smoke: No caffeine: Yes during the past year weight has: remained stable Dental Care, Regularly: Yes Physical Activity Frequency: 1-2 Times per Week Seatbelt Use: always Sunscreen Use: Yes Assistive Devices: Cane and Glasses Review of Systems All systems reviewed & are unremarkable except as noted in HPI & below Physical Exam Constitutional: well developed and well nourished; no acute distress Eyes: PERRL, conjunctivae normal, anicteric sclerae ENMT: external ear and nose normal, oropharynx normal Neck: trachea midline, no thyromegaly Respiratory: normal respiratory effort, lungs clear to auscultation Cardiovascular: RRR, no murmur, no edema Musculoskeletal: Left knee: Valgus alignment. Mild effusion. Tenderness lateral joint line. Positive Giovanna's. Stable to valgus and varus stress. ROM 0-120 degrees Skin: no rashes, warm and dry Neurologic: patellar DTR's 2+ bilat, sensation intact Psychiatric: A+Ox3, euthymic affect Results & Data ([place]) Diagnostic Findings Left knee: Valgus alignment with bone on bone lateral compartment, periarticular osteophyte formation and subchondral sclerosis.
[~2021-01-04 10:07] MED LIST changes: -ACET-1256 PO; +ACETAMINOPHEN 500 MG TAB PO SCH; -AMLO-110 PO; -ASPEC325 PO; -ATEN50TA8 PO; +BUPIVACAINE 0.5 % 5 MG/1 ML PF 10ML VIAL ONE; -CALC-51 PO; -CHOL2000 PO; -CO Q10 PO; -CYCL10TA6 PO; +CeleBREX 200 MG CAP PO SCH; +FAMOTIDINE 20 MG TAB PO SCH; +GABAPENTIN 300 MG CAP PO SCH; -GLC500 PO; -LOSA50TA6 PO; -LOVA40TA4 PO; +LR 500ML BOLUS, THEN 15ML/HR IV SCH; -MAGN400T6 PO; +METOCLOPRAMIDE HCL 10 MG TABLET PO SCH; -MULT-506 PO; -NIAC500T11 PO; -OMEG10007 PO; -PANT40TA PO; +ROPIVACAINE 0.5% HCL/PF 150 MG, BUPIVACAINE 0.75% MPF 20 ML, EPINEPHrine 30MG/30ML (OR ... INFIL SCH; -RXC5 PO; +TRANEXAMIC ACID 1,000 MG **IV Intra-op IV SCH; +TRANEXAMIC ACID 1,000 MG **IV Pre-op IV SCH; +ceFAZolin 2000MG 2,000 MG/15 ML SYR IV SCH
[2021-01-04] MEDS ORDERED: ATROPINE SULFATE 0.1 MG/ML 10ML SYR IV PRN (12:02)
[2021-01-04] MEDS ORDERED: ONDANSETRON INJ 2 MG/ML 2 ML VIAL IV PRN ×2 (12:02→16:52)
[2021-01-04] MEDS ORDERED: ePHEDrine sulfate 50 MG/ML AMP IV PRN (12:02)
[2021-01-04] MEDS ORDERED: fentaNYL citrate 100 MCG/2 ML VIAL IV PRN (12:02)
[2021-01-04] MEDS ORDERED: ORTHO JOINT ANESTHETIC ONE (12:30)
[2021-01-04] MEDS ORDERED: fentaNYL citrate 100 MCG/2 ML VIAL ONE (12:32)
[2021-01-04] MEDS ORDERED: MIDAZOLAM HCL 1 MG/ML 2ML VIAL ONE (12:32)
--- NOTE | 2021-01-04 12:46 | History & Physical Bridge Note ---
Date of Service January 04, 2021 History & Physical Bridge Note I have examined the patient, reviewed the History & Physical and in the interval since the performance of the History & Physical I have noted the following changes of clinical significance: no changes noted
[2021-01-04] MEDS ORDERED: PROPOFOL IV EMULSION 10 MG/ML 20 ML VIAL IV ONE ×4 (13:41→15:28)
[2021-01-04] MEDS ORDERED: ePHEDrine sulfate 50 MG/ML AMP ONE (13:41)
--- NOTE | 2021-01-04 15:15 | Operative Report ---
Post Operative Report Pre & Post Diagnosis Operation Date: 01/04/21 12:40 Pre-Op Diagnosis: Unilateral Primary Osteoarthritis Left Knee, obesity BMI 38.6 Post-Op Diagnosis: Unilateral Primary Osteoarthritis Left Knee, obesity BMI 30.6 I identified the patient and participated in the time-out.: Yes Procedure Operation Date: 01/04/21 12:40 Actual Procedures p Left Total Knee Arthroplasty(Left) - Raul Gauthier MD Surgeon Raul Gauthier MD Weight Loss Centre Manager Dao MERIDA Estimated Blood Loss 5 Findings Consistent with Post-Op Diagnosis Specimens Bone cuts Drains 2 Hemovac Anesthesia Type MAC Spinal Regional Complications none Disposition Accompanied Patient To Recovery: No Disposition: Recovery Room Indications 65-year female chronic progressive osteoarthritis of her left knee. Patient has a 17 degree valgus deformity [id number] lateral compartment with patellofemoral OA as well. Patient status post prior right knee replacement in the past. Description of Procedure The patient was taken to the operating room and anesthetized under spinal MAC regional. Patient was placed supine on the the operating table. A pneumatic tourniquet was placed about the obese left upper thigh. The knee exam demonstrated moderate obesity, knee effusion, 5 through 135 degrees range of motion with valgus instability due to bone loss and some laxity MCL. The involved leg was elevated exsanguinated with Esmarch bandage and the pneumatic tourniquet was raised to 350 millimeters mercury. A longitudinal incision was made across the anterior knee. Skin flaps were elevated. An incision was made into the medial retinaculum and extended up into the mid third of the quadriceps tendon and extended down to the tibial tubercle. Intra-articular findings demonstrated severe lateral compartment osteoarthritis with chronic lateral meniscus tear. Tricompartmental osteophytes moderately severe patellofemoral o steoarthritis. The knee was exposed by excising cruciate ligaments and menisci. The infrapatellar fat pad was resected. The fat pad over the anterior femur at the upper aspect of the articular surface was resected for placement of the component in that area. A subperiosteal peel lateral release was performed around the patella. The Sibley [employer] Nephew journey 2.0 posterior stabilized total knee arthroplasty system was utilized for the procedure. The custom femoral cutting guide was pinned in position. The distal femoral cut was made. The size 3, 5 in 1 cutting block was placed. The anterior posterior and chamfer cuts were made. The knee was extended and a free hand cut technique was performed to the patella. The patella with was measured and the width was reproduced using a 35 mm symmetrical patella component. 3 drill holes are made for the patella component pegs. The tibia was then subluxed. The custom tibial cutting block was pinned in position and the proximal tibial cut was made with the oscillating saw. Flexion extension gaps were assessed. No releases were required medially and minor lateral posterior lateral release and some release IT band gave balanced extension and flexion gaps. The size 3 tibial trial was externally rotated in line with the tibial tubercle and pinned in position. The punch for the stem was used. The femoral trial was inserted and centered the notch cutting devices were used and the collet was placed. Tibial trials were used for the insert. The size 13 posterior stabilized trial gave balanced ligaments through full range of motion. Patella tracking was assessed with range of motion. The patella tracked centrally. The trials were removed. The Orthomix anesthetic cocktail was injected per protocol. The cut bone surfaces and soft tissue were copiously irrigated with saline solution. The final components were cemented with Refebocin cement with gentamicin. The final components were Sibley [employer] Nephew journey 2.0 left 3 femoral component, left 3 tibial component, 13 mm left tibial polyethylene insert, 35 mm symmetrical patella.. While the cement cured the Betadine soak was used per protocol. When the cement cured the knee was copiously irrigated with pulsatile lavage saline solution. 2 drains were brought out laterally connected to Hemovac. The quadriceps tendon and medial retinaculum were closed with interrupted [id number] #1 Vicryl sutures. The knee was taken through full range of motion and repair was secure. The subcutaneous tissues were closed with strata fix running locking sutures. The skin was closed with Prineo glue system. A sterile dressing was applied. The tourniquet was let down and the patient had good capillary refill to the extremity. The patient tolerated the procedure well. My physician household personal assistant Dao MERIDA assisted in the procedure including prepping draping leg positioning soft tissue retraction instrument management and assisted in the closure ,dressings application and will participate in postoperative care the patient. I attest to the content of the Intraoperative Record and any orders documented therein. Any exceptions are noted below.
--- NOTE | 2021-01-04 16:08 | XRay Report ---
XR knee LT 1 or 2V routine HISTORY: 65 years-old Female Surgical Post Op left knee total joint arthroplasty COMPARISON: None TECHNIQUE: 2 views of the left knee FINDINGS: Left knee total joint arthroplasty and patella resurfacing. Surgical drainage catheter. Expected post operative soft tissue swelling and deep tissue air. No acute fracture, malalignment or unexpected opa que foreign body. IMPRESSION: Left knee total joint arthroplasty with expected postoperative changes. ACT 112: Negative or not required by law. The above report was generated using voice recognition software. It may contain grammatical, syntax o r spelling errors. Electronically signed by: Singh Mccain M.D. 01/04/2021 4:06 PM
--- NOTE | 2021-01-04 16:27 | Anesthesiology Progress Note ---
Date of Service January 04, 2021 Anesthesia Post Procedure Vital Signs Vital Signs: Temp Pulse Pulse Resp BP BP Pulse Ox 01/04/21 16:21 65 14 136/69 94 01/04/21 16:10 63 16 146/68 H 98 01/04/21 16:00 65 16 153/109 H 100 01/04/21 15:50 64 18 138/88 100 01/04/21 15:44 37.3 C 74 20 131/77 99 01/04/21 11:03 37.6 C H 70 18 179/93 H 93 Pain Intensity Left Knee: Pain Intensity: 5 Transfer of Care Handoff Completed per policy Notes Mental Status: alert / awake / arousable Patient Amnestic to Procedure: Yes Nausea / Vomiting: adequately controlled Pain: adequately controlled Airway Patency, RR, SpO2: stable & adequate BP & HR: stable & adequate Hydration State: stable & adequate Neuraxial Anesthesia: was administered and sensory block is resolving Anesthetic Complications: no major complications apparent and Pt Satisfied with anesthetic care
[2021-01-04] MEDS ORDERED: NALOXONE HCL 0.4 MG/1 ML VIAL/CARP IV PRN (16:52)
[2021-01-04] MEDS ORDERED: MAGNESIUM HYDROXIDE SUSP 30 ML UDC PO PRN (16:52)
[2021-01-04] MEDS ORDERED: bisacodyL 10 MG SUPP PR PRN (16:52)
[2021-01-04] MEDS ORDERED: METOCLOPRAMIDE HCL INJ 5 MG/ML 2 ML VIAL IV PRN (16:52)
[2021-01-04] MEDS: SODIUM CHLORIDE 0.9% 1000ML 1,000 ML IV SCH (17:42)
[2021-01-04] MEDS ORDERED: PNEUMOCOCCAL Polysaccharide Vaccine 25mcg/0.5mL vial/Syr IM ONE (20:00)
--- NOTE | 2021-01-04 20:08 | Hospitalist Consultation ---
Date of Consultation January 04, 2021 Assessment & Plan (1) Hypertension: 65 y/o F Hx HTN, HLD, GERD, prediabetes, osteoarthritis. She is post L TKA. The pt is recovering well in the post-op period. She denies CP, SOB, nausea, vomiting, fevers or excessive pain at the surgical site. 1) HTN - would resume amlodipine, atenolol. resume Losartan pending AM assessment and labs 2) HLD - Cont statin 3) Post-op - DVT prophylaxis, PT/OT per ortho - pain is well controlled. 4) GERD - PPi 5) PreDM - resume metformin on DC Total time for this consult including review of labs, meds, imaging, records - discussion/exam with pt - 32 min (2) Dyslipidemia: (3) Primary osteoarthritis of left knee: History of Present Illness Reason for Consultation: post-op medical Attending Physician: Raul Gauthier MD History of Present Illness 65 y/o F Hx HTN, HLD, GERD, prediabetes, osteoarthritis. She is post L TKA. Th e pt is recovering well in the post-op period. She denies CP, SOB, nausea, vomiting, fevers or excessive pain at the surgical site. PMH: 1) HTN 2) HLD 3) Osteoarthritis 4) GERD 5) Obese Surgical: 1) L TKA 2) R TKA 3) Lumbar fusion 4) R ankle reconstruction Social: Does not drink or smoke She is independent Family: Mother - CHF Allergies Allergy/AdvReac Type Severity Reaction Status Date / Time No Known Allergies Allergy Unknown Verified 01/04/21 10:49 Home Medications Medication Instructions Recorded Confirmed Type aspirin 81 mg tablet,delayed 81 mg PO HS 03/05/19 01/04/21 History release cholecalciferol (vitamin D3) 50 2,000 units PO DAILY 03/05/19 01/04/21 History mcg (2,000 unit) capsule magnesium oxide 250 mg PO Q2D cap 06/08/20 01/04/21 History diclofenac sodium 50 mg 50 mg PO BID #180 tab 07/25/20 01/04/21 Rx tablet,delayed release metformin 1,000 mg tablet 1,000 mg PO BID #180 tab 07/25/20 01/04/21 Rx pantoprazole 20 mg tablet,delayed 20 mg PO BID #180 tab 07/25/20 01/04/21 Rx release acetaminophen [Tylenol Extra 500 mg PO Q6H PRN 11/29/20 01/04/21 History Strength] amlodipine 5 mg PO HS 11/29/20 01/04/21 History atenolol 50 mg PO QAM 11/29/20 01/04/21 History lovastatin 80 mg PO HS 11/29/20 01/04/21 History multivitamin 0.5 tab PO BID 11/29/20 01/04/21 History losartan 100 mg tablet 100 mg PO QAM #90 tab 12/05/20 01/04/21 Rx Patient History Medical History Dyslipidemia Dysmetabolic syndrome X Esophageal reflux Hyperglycemia Hypertension Insomnia Lumbar stenosis with neurogenic claudication Obesity Osteoarthritis Renal insufficiency Surgical History History of ankle surgery History of colonoscopy S/P knee replacement S/P spinal fusion Family History Mother Myocardial infarction Family/Other Family history of diabetes mellitus Denies family history of Ovarian cancer Prostate cancer Breast cancer Colorectal cancer Social History Smoking Status: Former smoker Age Started Using Tobacco: 18; Age Quit Using Tobacco: 50; packs per day: 0.5; Years Smoked: 32; Smoking End Date: Quit 10 years ago (hx 10 cigs/day); Number of Years Since Quit: 15; Second Hand Exposure: No; Do You Dip or Chew Tobacco: No; Hx Alcohol Use: Yes Alcohol type: hard liquor Hx Substance Use: No Preferred Language: Syriac Communication Ability: Effective Visual Impairment: No Limitations Hearing Ability: Normal Leak Detector Required: No Beliefs That Will Affect Care: None marital status: Single Current Living Situation: Alone current occupational status: retired Other Information That Helps Us Care for You: No Feels Safe at Home: Yes Safety Concerns: Feels Safe At This Time Childhood Exposure to Second-Hand Smoke: No caffeine: Yes during the past year weight has: remained stable Dental Care, Regularly: Yes Physical Activity Frequency: 1-2 Times per Week Seatbelt Use: always Sunscreen Use: Yes Assistive Devices: Glasses and Walker Review of Systems Review of Systems: Gen: Denies fevers, night sweats, rigors, fatigue, malaise, weight loss/gain ENT: Denies congestion, throat pain, hearing loss Eyes: Denies acute visual changes CV: Denies CP, palpitations Pulmonary: Denies SOB, cough, wheezing GI: Denies N/V, diarrhea, constipation Neuro: Denies acute or unilateral weakness, acute gait impairment, headache or acute visual changes Musculoskeletal: Denies joint pain, inflammation Endocrine: Denies polydipsia, polyuria Skin: Denies acute rashes or ulcers Physical Exam Physical Exam: General: AAO x 3, no distress ENT: No erythema or exudates, no thrush Eyes: ERIC, EOMI Head and neck: Normocephalic, atraumatic, No JVD, neck is supple. Chest/heart: Nontender, S1,2, RRR, no murmurs, no gallops Lungs: CTAB, no wheezing or crackles Abdomen: Nontender, nondistended, BS+ Neuro: AAO x 3, speech is clear, no unilateral weakness or loss of sensation, coordination intact Musculoskeletal: No joint inflammation, muscle tenderness - did not mobilize LEs Skin: No acute rashes or ulcers - did not evaluate surgical site Extremities: No clubbing, cyanosis, edema Results & Data Results & Data ([facility]) Vital Signs (Past 12 Hours) Vital Signs Temp Pulse Pulse Resp BP BP Pulse Ox 01/04/21 20:02 145/82 H 01/04/21 19:58 97.9 F 66 18 174/82 H 94 01/04/21 18:51 97.3 F L 68 18 126/73 96 01/04/21 17:41 97.9 F 68 18 148/87 H 97 01/04/21 17:10 97.7 F 61 16 149/85 H 99 01/04/21 16:40 97.5 F L 66 16 138/85 97 01/04/21 16:30 97.5 F L 64 19 135/67 96 01/04/21 16:21 65 14 136/69 94 01/04/21 16:10 63 16 146/68 H 98 01/04/21 16:00 65 16 153/109 H 100 01/04/21 15:50 64 18 138/88 100 01/04/21 15:44 99.1 F 74 20 131/77 99 01/04/21 11:03 99.7 F H 70 18 179/93 H 93 PG Care Time/CCT Total # of Minutes Spent Total Time Spent with Patient: Total time spent is greater than 50% in coordination of care (as documented) at patient's floor/unit and/or counseling patient: Coding Level of Care Code 48789 Inpt Consult Level 3 Diagnoses Hypertension I10 Dyslipidemia E78.5 Primary osteoarthritis of left knee M17.12
[2021-01-04] MEDS: amLODIPine BESYLATE 5 MG TAB PO SCH (20:13)
[2021-01-04] MEDS: DOCUSATE SODIUM 100 MG CAP PO SCH (20:14)
[2021-01-04] MEDS: LOVASTATIN 20 MG TAB PO SCH (20:14)
[2021-01-04] MEDS: ASPIRIN 81 MG ECTAB PO SCH (20:14)
[2021-01-04] MEDS: PANTOprazole 40 MG TAB PO SCH (20:15)
[2021-01-04] MEDS: SENNA 8.6 MG TAB PO SCH (20:15)
[2021-01-04] MEDS ORDERED: MULTIVITAMIN TAB PO SCH (21:00)
[2021-01-04] MEDS: ceFAZolin 2000MG 2,000 MG/15 ML SYR IV SCH (21:23)
[2021-01-04] MEDS: ACETAMINOPHEN 500 MG TAB PO SCH (21:30)
[2021-01-05] MEDS: oxyCODONE HCL IR 5 MG TAB (IMMEDIATE RELEASE) PO PRN ×5 (01:52→20:09)
[2021-01-05] MEDS: SODIUM CHLORIDE 0.9% 1000ML 1,000 ML IV SCH (04:58)
[2021-01-05] MEDS: ceFAZolin 2000MG 2,000 MG/15 ML SYR IV SCH (06:22)
[2021-01-05] MEDS: ACETAMINOPHEN 500 MG TAB PO SCH ×3 (06:22→21:39)
--- NOTE | 2021-01-05 07:25 | Orthopedic Progress Note ---
Date of Service January 05, 2021 Assessment & Plan (1) S/P total knee arthroplasty: POD#1 Left TKA -PT/OT -Pain management as written -DVT prophylaxis-SCDs, TEDs, ASA 81mg BID x 1 mo -AM labs-pending -D/C planning-home with home health PT, likely tomorrow Admission and Anticipated Discharge Date Admission Date: January 04, 2021 Subjective POD#1 left TKA. Patient is having some increased pain this morning since block wore off. Controlled with ordered pain medication. No other complaints. Denies chest pain, sob, dizziness, fever, chills, n/v/d. Review of Systems Review of Systems: All systems reviewed & are unremarkable except as noted in Subjective Physical Exam Physical Exam: Dressing to left knee is c/d/i. Toes mobile with good dorsiflexion. No calf tenderness. Distally n/v status and sensation intact. Constitutional: well developed and well nourished; no acute distress Results & Data ([facility]) Vital Signs (Past 12 Hours) Vital Signs Temp Pulse Resp BP Pulse Ox 01/05/21 06:08 36.9 C 60 16 108/67 96 01/05/21 02:06 36.5 C 61 16 141/83 H 95 01/04/21 23:06 36.4 C L 62 16 148/74 H 94 01/04/21 20:02 145/82 H 01/04/21 19:58 36.6 C 66 18 174/82 H 94 (1) S/P total knee arthroplasty Laterality: left Qualified Code(s): Z96.652 - Presence of left artificial knee joint
[2021-01-05 07:57] LABS: Hematocrit (blood only) 31.2 % (37-47); Hemoglobin 10.5 g/dL (12.0-16.0); Mean Corpuscular Hemoglobin 31.4 pg (25-34); Mean Corpuscular Hgb Conc 33.7 g/dL (32-36); Mean Corpuscular Volume 93.4 fL (80-100); Mean Platelet Volume 8.8 fL (7.4-10.4); Platelet Count 277 K/uL (130-400); RDW Coefficient of Variation 13.2 % (11.5-14.5); RDW Standard Deviation 44.7 fL (36.4-46.3); Red Blood Count 3.34 M/uL (4.2-5.4); White Blood Count 6.66 K/uL (4.8-10.8)
[2021-01-05 08:32] LABS: BUN Creatinine Ratio 20.2 (10-20); Calcium 8.9 mg/dl (8.5-10.1); Creatinine Clr Calc Pharmacy 57.7 ml/min; Est GFR (African American) 53.1 ml/min; Est GFR (Non-African American) 45.8 ml/min; Potassium 4.2 mmol/L (3.5-5.1)
[2021-01-05] MEDS: ATENOLOL 50 MG TABLET PO SCH (08:34)
[2021-01-05] MEDS: PANTOprazole 40 MG TAB PO SCH ×2 (08:35→21:39)
[2021-01-05] MEDS: DOCUSATE SODIUM 100 MG CAP PO SCH ×2 (08:35→21:39)
[2021-01-05] MEDS: CHOLECALCIFEROL 1,000 UNITS 25 MCG TAB PO SCH (08:35)
[2021-01-05] MEDS: MULTIVITAMIN TAB PO SCH (08:35)
[2021-01-05] MEDS: LOSARTAN POTASSIUM 50 MG TAB PO SCH (08:35)
[2021-01-05] MEDS: ASPIRIN 81 MG ECTAB PO SCH ×2 (08:35→21:39)
[2021-01-05] MEDS: HYDROmorphone INJ 0.5 MG/0.5 ML SYR IV PRN ×3 (09:27→22:05)
--- NOTE | 2021-01-05 16:37 | Hospitalist Progress Note ---
Date of Service January 05, 2021 Assessment & Plan (1) S/P total knee arthroplasty: * Recommend continued PT/OT, incentive spirometry, pain control, and DVT prophylaxis X 14 daysall per primary (2) Primary osteoarthritis of left knee: (3) Dyslipidemia: * Continue lovastatin as prior to hospitalization (4) Hyperglycemia: * Continue Metformin as prior to hospitalization along with Accu-Checks with sliding scale for coverage (5) Dysmetabolic syndrome X: (6) Hypertension: * Continue atenolol, amlodipine, and losartan as prior to hospitalization We will sign off on this patient from a medical standpoint but do not hesitate to reconsult should a problem arise. Thank you for allowing me to part spent in the care of this patient Admission and Anticipated Discharge Date Admission Date: January 04, 2021 Subjective Patient seen on daily rounds today. She is POD #1 s/p left TKA. Her pain is adequately controlled. She has yet to perform step therapy. Has not yet had a BM but reports flatus. Denies fevers, chills, chest pain, shortness of breath, abdominal pain, nausea or vomiting. Lives in a one-story home but does have 2 steps to enter into the home. Does live alone. Review of Systems Review of Systems: Denies fevers, chills, headache, nasal congestion, sore throat, cough, chest pain, shortness of breath, abdominal pain, nausea, vomiti ng, GI/ symptomatology. Physical Exam Physical Exam: General: Resting comfortably in her bedside chair. A&O X3 NAD. Cardiac: RRR without M/G/R Lungs: CTA without W/R/R Abdomen: Normoactive X4. Soft and nontender in all quadrants. Extremities: Indwelling Hemovac to left knee. Surgical dressing dry and intact. Distal pulses of the bilateral lower extremities are intact and symmetrical bilaterally. Capillary refill +2. Negative Homans' sign. No calf tenderness. Results & Data Results & Data ([facility]) Vital Signs (Past 12 Hours) Vital Signs Temp Pulse Resp BP Pulse Ox 01/05/21 15:20 36.9 C 66 20 117/79 95 01/05/21 11:00 36.7 C 64 20 100/60 92 01/05/21 06:08 36.9 C 60 16 108/67 96 PG Care Time/CCT Total # of Minutes Spent Total Time Spent with Patient: Total time spent is greater than 50% in coordination of care (as documented) at patient's floor/unit and/or counseling patient: [place] [address] Inpt Consult Level 2 Patient Type Established History Expanded Problem Focused Exam Expanded Problem Focused Medical Decision Making Low Complexity Diagnoses S/P total knee arthroplasty Z96.652 Laterality: left Primary osteoarthritis of left knee M17.12 Dyslipidemia E78.5 Hyperglycemia R73.9 Dysmetabolic syndrome X E88.81 Hypertension I10 (1) S/P total knee arthroplasty Laterality: left Qualified Code(s): Z96.652 - Presence of left artificial knee joint
[2021-01-05] MEDS: metFORMIN HCL 500 MG TAB PO SCH (21:38)
[2021-01-05] MEDS: amLODIPine BESYLATE 5 MG TAB PO SCH (21:39)
[2021-01-05] MEDS: LOVASTATIN 20 MG TAB PO SCH (21:39)
[2021-01-05] MEDS: SENNA 8.6 MG TAB PO SCH (21:39)
[2021-01-06] MEDS: oxyCODONE HCL IR 5 MG TAB (IMMEDIATE RELEASE) PO PRN ×6 (01:27→22:30)
[2021-01-06] MEDS: ACETAMINOPHEN 500 MG TAB PO SCH ×3 (05:33→20:49)
[2021-01-06 05:55] LABS: Basophils # (auto) 0.02 K/uL (0-0.2); Basophils % (auto) 0.3 %; Eosinophils % (auto) 1.4 %; Hematocrit (blood only) 28.9 % (37-47); Hemoglobin 9.8 g/dL (12.0-16.0); Immature Granulocytes # (auto) 0.01 K/uL (0.00-0.02); Immature Granulocytes % (auto) 0.1 %; Lymphocytes # (auto) 2.22 K/uL (1.2-3.4); Lymphocytes % (auto) 31.9 %; Mean Corpuscular Hemoglobin 31.7 pg (25-34); Mean Corpuscular Hgb Conc 33.9 g/dL (32-36); Mean Corpuscular Volume 93.5 fL (80-100); Mean Platelet Volume 8.7 fL (7.4-10.4); Monocytes # (auto) 0.96 K/uL (0.11-0.59); Monocytes % (auto) 13.8 %; Neutrophils # (auto) 3.64 K/uL (1.4-6.5); Neutrophils % (auto) 52.5 %; Platelet Count 286 K/uL (130-400); RDW Coefficient of Variation 13.3 % (11.5-14.5); Red Blood Count 3.09 M/uL (4.2-5.4); White Blood Count 6.95 K/uL (4.8-10.8)
[2021-01-06 06:22] LABS: BUN Creatinine Ratio 24.2 (10-20); Calcium 8.7 mg/dl (8.5-10.1); Creatinine Clr Calc Pharmacy 74.1 ml/min; Est GFR (African American) 71.8 ml/min; Potassium 4.5 mmol/L (3.5-5.1)
[2021-01-06] MEDS ORDERED: KETOROLAC TROMETHAMINE 15 MG/ML VIAL IV ONE (07:32)
[2021-01-06] MEDS: MULTIVITAMIN TAB PO SCH (08:16)
[2021-01-06] MEDS: DOCUSATE SODIUM 100 MG CAP PO SCH ×2 (08:16→20:48)
[2021-01-06] MEDS: PANTOprazole 40 MG TAB PO SCH ×2 (08:16→20:48)
[2021-01-06] MEDS: LOSARTAN POTASSIUM 50 MG TAB PO SCH (08:16)
[2021-01-06] MEDS: CHOLECALCIFEROL 1,000 UNITS 25 MCG TAB PO SCH (08:16)
[2021-01-06] MEDS: metFORMIN HCL 500 MG TAB PO SCH ×2 (08:16→20:48)
--- NOTE | 2021-01-06 08:16 | Orthopedic Progress Note ---
Date of Service January 06, 2021 Assessment & Plan (1) S/P total knee arthroplasty: POD#2 Left TKA -PT/OT -Pain management as written -DVT prophylaxis-SCDs, TEDs, ASA 81mg BID x 1 mo -AM labs-kidney function improved. Hemoglobin to 9.8 this morning. Acute blood loss anemia due to surgical loss vs dilutional effect. -D/C planning-home with home health PT, will see how she does with PT today. Possible discharge home today. may require inpatient rehab stay vs HHPT. Admission and Anticipated Discharge Date Admission Date: January 04, 2021 Subjective Pain a little better today. Still with moderate amount of pain. Was unable to do PT yesterday afternoon. No other complaints. Denies chest pain, sob, dizziness, n/v/d, fever, chills. Review of Systems Review of Systems: All systems reviewed & are unremarkable except as noted in Subjective Physical Exam Physical Exam: Prineo dressing to left knee is c/d/i, incision c/d/i. Toes mobile with good dorsiflexion. No calf tenderness. Distally n/v status and s ensation intact. Constitutional: well developed and well nourished; no acute distress Results & Data ([facility]) Vital Signs (Past 12 Hours) Vital Signs Temp Pulse Resp BP Pulse Ox 01/05/21 21:35 37.1 C 76 18 146/84 H 97 (1) S/P total knee arthroplasty Laterality: left Qualified Code(s): Z96.652 - Presence of left artificial knee joint
[2021-01-06] MEDS: ATENOLOL 50 MG TABLET PO SCH (08:17)
[2021-01-06] MEDS: ASPIRIN 81 MG ECTAB PO SCH ×2 (08:17→20:49)
[2021-01-06] MEDS: SENNA 8.6 MG TAB PO SCH (20:49)
[2021-01-06] MEDS: LOVASTATIN 20 MG TAB PO SCH (20:49)
[2021-01-06] MEDS: amLODIPine BESYLATE 5 MG TAB PO SCH (20:49)
[2021-01-07] MEDS: oxyCODONE HCL IR 5 MG TAB (IMMEDIATE RELEASE) PO PRN ×4 (04:44→21:16)
[2021-01-07] MEDS: ACETAMINOPHEN 500 MG TAB PO SCH ×3 (05:27→21:15)
--- NOTE | 2021-01-07 08:02 | Orthopedic Progress Note ---
Date of Service January 07, 2021 Assessment & Plan (1) S/P total knee arthroplasty: POD#3 Left TKA -PT/OT -Pain management as written -DVT prophylaxis-SCDs, TEDs, ASA 81mg BID x 1 mo -D/C planning-PT recommending rehab. Patient would like to go to [facility]. Discussed with case management. Likely will not be able to get insurance authorization over the weekend. Plan on discharge tomorrow pending SNF authorization and acceptance. Admission and Anticipated Discharge Date Admission Date: January 06, 2021 Subjective Pain at rest better today. Still with moderate amount of pain with ambulating. PT recommending rehab. No other complaints. Denies chest pain, sob, dizziness, n/v/d, fever, chills. Review of Systems Review of Systems: All systems reviewed & are unremarkable except as noted in Subjective Physical Exam Physical Exam: Prineo dressing to left knee is c/d/i, incision c/d/i. Toes mobile with good dorsiflexion. No calf tenderness. Distally n/v status and sensation intact. Constitutional: well developed and well nourished; no acute distress Results & Data ([facility]) Vital Signs (Past 12 Hours) Vital Signs Temp Pulse Resp BP Pulse Ox 01/07/21 07:36 36.6 C 78 16 95/61 L 95 01/06/21 22:26 36.4 C L 86 16 106/68 95 (1) S/P total knee arthroplasty Laterality: left Qualified Code(s): Z96.652 - Presence of left artificial knee joint
[2021-01-07] MEDS: DOCUSATE SODIUM 100 MG CAP PO SCH ×2 (09:10→21:18)
[2021-01-07] MEDS: metFORMIN HCL 500 MG TAB PO SCH ×2 (09:10→21:17)
[2021-01-07] MEDS: ASPIRIN 81 MG ECTAB PO SCH ×2 (09:10→21:16)
[2021-01-07] MEDS: LOSARTAN POTASSIUM 50 MG TAB PO SCH (09:11)
[2021-01-07] MEDS: PANTOprazole 40 MG TAB PO SCH ×2 (09:11→21:16)
[2021-01-07] MEDS: CHOLECALCIFEROL 1,000 UNITS 25 MCG TAB PO SCH (09:11)
[2021-01-07] MEDS: ATENOLOL 50 MG TABLET PO SCH (09:12)
[2021-01-07] MEDS: MULTIVITAMIN TAB PO SCH (09:12)
[2021-01-07] MEDS: DICLOFENAC SODIUM 75 MG TABCR PO SCH (21:18)
[2021-01-07] MEDS: SENNA 8.6 MG TAB PO SCH (21:18)
[2021-01-07] MEDS: LOVASTATIN 20 MG TAB PO SCH (21:18)
[2021-01-07] MEDS: amLODIPine BESYLATE 5 MG TAB PO SCH (21:59)
[2021-01-08] MEDS: oxyCODONE HCL IR 5 MG TAB (IMMEDIATE RELEASE) PO PRN ×4 (01:20→14:27)
[2021-01-08] MEDS: ACETAMINOPHEN 500 MG TAB PO SCH ×2 (05:16→14:26)
[2021-01-08] MEDS: DOCUSATE SODIUM 100 MG CAP PO SCH (08:26)
[2021-01-08] MEDS: PANTOprazole 40 MG TAB PO SCH (08:28)
[2021-01-08] MEDS: ASPIRIN 81 MG ECTAB PO SCH (08:28)
[2021-01-08] MEDS: MULTIVITAMIN TAB PO SCH (08:28)
[2021-01-08] MEDS: CHOLECALCIFEROL 1,000 UNITS 25 MCG TAB PO SCH (08:28)
[2021-01-08] MEDS: metFORMIN HCL 500 MG TAB PO SCH (08:28)
[2021-01-08] MEDS: DICLOFENAC SODIUM 75 MG TABCR PO SCH (08:28)
[2021-01-08] MEDS: ATENOLOL 50 MG TABLET PO SCH (08:35)
[2021-01-08] MEDS: LOSARTAN POTASSIUM 50 MG TAB PO SCH (08:35)
--- NOTE | 2021-01-08 13:42 | Orthopedic Progress Note ---
Date of Service January 08, 2021 Assessment & Plan (1) S/P total knee arthroplasty: POD#4 Left TKA -PT/OT -Pain management as written -DVT prophylaxis-SCDs, TEDs, ASA 81mg BID x 1 mo -D/C planning-PT noted patient is doing much better and progressing well with PT. They feel she is safe to go home instead of SNF. Plan for DC to home today with home health. Admission and Anticipated Discharge Date Admission Date: January 06, 2021 Subjective POD 4 Pt sitting up in bed today. No complaints. Pain controlled. She states that she is doing much better today as far as her PT /OT progressing. She is asking to go home instead of SNF. Physical Exam Physical Exam: Incision is C/D/I. Mild swelling consistent with surgery. Calves soft, NT. NV intact. Results & Data ([facility]) Vital Signs (Past 12 Hours) Vital Signs Temp Pulse Pulse Resp BP Pulse Ox 01/08/21 12:57 36.5 C 83 71 18 145/76 H 99 01/08/21 08:33 83 145/76 H 01/08/21 07:08 36.5 C 71 18 99/64 L 99 (1) S/P total knee arthroplasty Laterality: left Qualified Code(s): Z96.652 - Presence of left artificial knee joint
--- NOTE | 2021-01-08 16:15 | Discharge Summary ---
Date of Service January 08, 2021 Admission HPI Per Admitting Provider 65 year old female with PMHx significant for HTN, high cholesterol, GERD who presents with longstanding left knee pain. She has endstage OA left knee. Pain is interfering with her daily and leisure activities. She has failed conservative management including cortisone injections, DESAI injections, NSAIDs, and bracing. She previously has had right knee replaced and has done well. She would like to proceed with left knee replacement. Patient denies headaches, sweats, fevers, chills, double vision, blurred vision, cough, sore throat, dysphagia, chest pain, sob, wheezing, n/v/d/c, numbness, tingling, fatigue, urinary symptoms, mood disorders. ROS positive for left knee pain and stiffness. Admission Exam Per Admitting Provider Constitutional: well developed and well nourished; no acute distress Eyes: PERRL, conjunctivae normal, anicteric sclerae ENMT: external ear and nose normal, oropharynx normal Neck: trachea midline, no thyromegaly Respiratory: normal respiratory effort, lungs clear to auscultation Cardiovascular: RRR, no murmur, no edema Musculoskeletal: Left knee: Valgus alignment. Mild effusion. Tenderness lateral joint line. Positive Giovanna's. Stable to valgus and varus stress. ROM 0-120 degrees Skin: no rashes, warm and dry Neurologic: patellar DTR's 2+ bilat, sensation intact Psychiatric: A+Ox3, euthymic affect Principal Diagnosis Left knee osteoarthritis Discharge Exam Constitutional well developed and well nourished; no acute distress Eyes PERRL, conjunctivae normal, anicteric sclerae ENMT external ear and nose normal, oropharynx normal Neck trachea midline, no thyromegaly Respiratory normal respiratory effort, lungs clear to auscultation Cardiovascular RRR, no murmur, no edema Skin no rashes, warm and dry Neurologic patellar DTR's 2+ bilat, sensation intact Psychiatric A+Ox3, euthymic affect Discharge Data Allergies Allergy/AdvReac Type Severity Reaction Status Date / Time No Known Allergies Allergy Unknown Verified 01/04/21 10:49 Consultations 01/01/21 14:10 Consult Hospitalist Routine Procedures Performed Operation Date: 01/04/21 12:40 Actual Procedures p Left Total Knee Arthroplasty(Left) - Raul Gauthier MD Ordered Studies 01/04/21 05:00 US - OR guided needle placemen Routine Hospital Course (1) S/P total knee arthroplasty: Patient presented for same day admission following left total knee arthroplasty on 01/04/21. She tolerated procedure well. The Patient had an uneventful hospital course. Post-operatively, her activity was progressed and well tolerated. They participated in PT with ambulation distance of 85 feet. ROM of operative knee reached 94 degrees. Labs remained stable- lowest hemoglobin recorded: 9.[address] Juvencio Carranza of medical service was consulted for medical management during admission. Pain controlled on oral medications. Please refer to daily progress notes and PT notes for complete details. After exam on 01/08/21, patient was felt to be stable for discharge home with home health PT. Patient will f/u in the office in about 2 weeks for further evaluation including x-rays and incision check, sooner if having any issues or concerns. POD#4 Left TKA -PT/OT -Pain management as written -DVT prophylaxis-SCDs, TEDs, ASA 81mg BID x 1 mo -D/C planning-PT noted patient is doing much better and progressing well with PT. They feel she is safe to go home instead of SNF. Plan for DC to home today with home health. Lab Results 01/04/21 01/04/21 01/04/21 Range/Units 10:43 10:43 10:55 WBC (4.8-10.8) K/uL RBC (4.2-5.4) M/uL Hgb (12.0-16.0) g/dL Hct (37-47) % MCV (80-100) fL MCH (25-34) pg MCHC (32-36) g/dL RDW Std Deviation (36.4-46.3) fL RDW Coeff of Unique (11.5-14.5) % Plt Count (130-400) K/uL MPV (7.4-10.4) fL Immature Gran % (Auto) % Neut % (Auto) % Lymph % (Auto) % [place] % (Auto) % Eos % (Auto) % Baso % (Auto) % Neut # (Auto) (1.4-6.5) K/uL Lymph # (Auto) (1.2-3.4) K/uL [place] # (Auto) (0.11-0.59) K/uL Eos # (Auto) (0-0.5) K/uL Baso # (Auto) (0-0.2) K/uL Immature Gran # (Auto) (0.00-0.02) K/uL Sodium (136-145) mmol/L Potassium (3.5-5.1) mmol/L Chloride (98-107) mmol/L Carbon Dioxide (21-32) mmol/L Anion Gap (3-11) BUN (7-18) mg/dl Creatinine (0.6-1.2) mg/dl Est Cr Clr Drug Dosing ml/min Est GFR ( Amer) ml/min Est GFR (Non-Af Amer) ml/min BUN/Creatinine Ratio (10-20) Glucose (70-99) mg/dl POC Glucose 127 H (70-99) mg/dl Calcium (8.5-10.1) mg/dl COVID-19 Eval [facility] SARS-CoV-2, RNA, NAAT NEGATIVE (NEGATIVE) 01/05/21 01/05/21 01/06/21 Range/Units 07:40 07:40 05:33 WBC 6.66 6.95 (4.8-10.8) K/uL RBC 3.34 L 3.09 L (4.2-5.4) M/uL Hgb 10.5 L 9.8 L (12.0-16.0) g/dL Hct 31.2 L 28.9 L (37-47) % MCV 93.4 93.5 (80-100) fL MCH 31.4 31.7 (25-34) pg MCHC 33.7 33.9 (32-36) g/dL RDW Std Deviation 44.7 45.0 (36.4-46.3) fL RDW Coeff of Unique 13.2 13.3 (11.5-14.5) % Plt Count 277 286 (130-400) K/uL MPV 8.8 8.7 (7.4-10.4) fL Immature Gran % (Auto) 0.1 % Neut % (Auto) 52.5 % Lymph % (Auto) 31.9 % [place] % (Auto) 13.8 % Eos % (Auto) 1.4 % Baso % (Auto) 0.3 % Neut # (Auto) 3.64 (1.4-6.5) K/uL Lymph # (Auto) 2.22 (1.2-3.4) K/uL [place] # (Auto) 0.96 H (0.11-0.59) K/uL Eos # (Auto) 0.10 (0-0.5) K/uL Baso # (Auto) 0.02 (0-0.2) K/uL Immature Gran # (Auto) 0.01 (0.00-0.02) K/uL Sodium 136 (136-145) mmol/L Potassium 4.2 (3.5-5.1) mmol/L Chloride 105 (98-107) mmol/L Carbon Dioxide 25 (21-32) mmol/L Anion Gap 6.0 (3-11) BUN 25 H (7-18) mg/dl Creatinine 1.22 H (0.6-1.2) mg/dl Est Cr Clr Drug Dosing 57.7 ml/min Est GFR ( Amer) 53.1 ml/min Est GFR (Non-Af Amer) 45.8 ml/min BUN/Creatinine Ratio 20.2 H (10-20) Glucose 107 H (70-99) mg/dl POC Glucose (70-99) mg/dl Calcium 8.9 (8.5-10.1) mg/dl COVID-19 Eval Order SARS-CoV-2, RNA, NAAT (NEGATIVE) 01/06/21 Range/Units 05:33 WBC (4.8-10.8) K/uL RBC (4.2-5.4) M/uL Hgb (12.0-16.0) g/dL Hct (37-47) % MCV (80-100) fL MCH (25-34) pg MCHC (32-36) g/dL RDW Std Deviation (36.4-46.3) fL RDW Coeff of Unique (11.5-14.5) % Plt Count (130-400) K/uL MPV (7.4-10.4) fL Immature Gran % (Auto) % Neut % (Auto) % Lymph % (Auto) % [place] % (Auto) % Eos % (Auto) % Baso % (Auto) % Neut # (Auto) (1.4-6.5) K/uL Lymph # (Auto) (1.2-3.4) K/uL [place] # (Auto) (0.11-0.59) K/uL Eos # (Auto) (0-0.5) K/uL Baso # (Auto) (0-0.2) K/uL Immature Gran # (Auto) (0.00-0.02) K/uL Sodium 135 L (136-145) mmol/L Potassium 4.5 (3.5-5.1) mmol/L Chloride 105 (98-107) mmol/L Carbon Dioxide 26 (21-32) mmol/L Anion Gap 4.0 (3-11) BUN 23 H (7-18) mg/dl Creatinine 0.95 (0.6-1.2) mg/dl Est Cr Clr Drug Dosing 74.1 ml/min Est GFR ( Amer) 71.8 ml/min Est GFR (Non-Af Amer) 62.0 ml/min BUN/Creatinine Ratio 24.2 H (10-20) Glucose 121 H (70-99) mg/dl POC Glucose (70-99) mg/dl Calcium 8.7 (8.5-10.1) mg/dl COVID-19 Eval Order SARS-CoV-2, RNA, NAAT (NEGATIVE) Total Time Total Time Spent Total Time Spent (In Minutes): 20 Discharge Plan Discharge Items Patient Disposition: Home - Home Health Services Reason For Visit: Unilateral Primary Osteoarthritis Left Knee Discharge Diagnosis: Left knee osteoarthritis Activity: Per Instructions section Non-emergency contact: Surgeon Call non-emergency contact if: you have any medication questions, your pain is not controlled, your pain is worsening, your pain is concerning for you, you have a fever, your temperature is above 101, your wound has increased redness, your wound has increased drainage and your wound pain has increased Follow-up/Referrals: Mei Curtis MD [Primary Care Provider] - Diet: Regular Addtl Attending Provider Instructions: ACTIVITY RECOMMENDATIONS: SELF CARE INSTRUCTIONS AFTER TOTAL KNEE REPLACEMENT A. You may need to continue a physical therapy program after discharge from the hospital. There are several options available to you. Your doctor will assist you in selecting the best one for you. 1. An out-patient facility 2 to 3 times a week for therapy or home therapy. 2. Continue working on all exercises taught to you in the hospital. Your goals should be to increase bending of your knee to 90 degrees and beyond and to fully straighten your knee. B. You may progress at your own pace from walking with a walker or crutches to a cane; then to no assistive devices. C. Make walking a part of your daily routine. Be up as much as comfortable with rest periods throughout the day. Rest with leg elevation is very important. Use the ice wrap frequently for the first 3-4 weeks. D. There are no restrictions on activities. You may ride in a car, shop, participate in rn spine and all social activities. E. Wear the long elastic stockings (SANJAY hose) 20 hours a day for 2 weeks after surgery. They can be removed several times a day for laundering and for a bath. F. You may shower, no tub baths until cleared by your doctor. SPECIAL CARE INSTRUCTIONS: VERY IMPORTANT TO READ AND REVIEW A. There are a few signs you need to watch for after you are home. Call [facility] if you notice any of the followin. Increased severe knee pain. Some pain is expected especially when you exercise. 2. Increased swelling in your leg or knee; pain or swelling of the calf muscle in either lower leg. 3. Any fluid drainage from the incision. 4. Shortness of breath or chest pain. B. Please call [facility] at if you have any concerns or questions about your operation or recovery. The doctor or his nurse will return your call promptly. C. You must take antibiotics before dental work, bladder, bowel or other surgery. Your doctor will provide you with a permanent care to carry describing this precaution. IMPORTANT: * REMEMBER TO TAKE ASPIRIN, 81 MG, TWICE DAILY FOR 4 WEEKS UNLESS OTHERWISE DIRECTED. THIS IS YOUR BLOOD THINNER. * HIGH RISK PATIENTS MAY BE PRESCRIBED A STRONGER BLOOD THINNER. THIS WILL BE PROVIDED AT DISCHARGE. * CALL IF INCREASED PAIN, REDNESS, DRAINAGE OR FEVER GREATER THAT 101. * WEAR SANJAY HOSE 20 HOURS PER DAY FOR 2 WEEKS. This is a mesh tape dressing that is covered with glue. It should remain in place until the incision is properly healed, usually 10-14 days. This dressing is designed to naturally slough off. You may trim the excess mesh tape as it peels off. Incision may be briefly wet in a shower. Dry immediately by blotting with a clean, dry towel. Do not bath or swim until instructed by your doctor. Do not scratch, rub, or pick at the dressing. Do not apply any topical ointments or lotions until dressing is completely removed and/or instructed by your doctor. There may be a small piece of suture material at one end of your incision. Do not pull or trim this. If it is bothersome or catching on clothing, you may cover it with a band-aid. . IF INCISION IS LEAKING THROUGH DRESSING, CALL THE OFFICE . FOLLOW UP VISIT: If appointment is not already scheduled: Please call [facility] to make a follow-up appointment for 2 weeks after your surgery at . Stand-Alone Forms: [facility], Opioid Pain Management, Smoking Cessation Medications and DC Order Prescriptions: New aspirin 81 mg Tablet,Delayed Release (Dr/Ec) 81 mg PO BID Qty: 60 RF: 0 acetaminophen [Tylenol Extra Strength] 500 mg Tablet 1,000 mg PO Q8 Qty: 60 RF: 0 oxycodone 5 mg Tablet 5 - 10 mg PO .Q4h-6h PRN (Reason: pain) Qty: 30 RF: 0 Continued diclofenac sodium 50 mg tablet,delayed release (DR/EC) 50 mg PO BID Qty: 180 RF: 1 metformin 1,000 mg tablet 1,000 mg PO BID Qty: 180 RF: 1 pantoprazole 20 mg tablet,delayed release (DR/EC) 20 mg PO BID Qty: 180 RF: 1 losartan 100 mg tablet 100 mg PO QAM Qty: 90 RF: 1 cholecalciferol (vitamin D3) 2,000 unit capsule 2,000 units PO DAILY RF: 0 magnesium oxide 400 mg magnesium capsule 250 mg PO Q2D RF: 0 multivitamin Tablet 0.5 tab PO BID RF: 0 lovastatin 40 mg tablet 80 mg PO HS RF: 0 amlodipine 5 mg tablet 5 mg PO HS RF: 0 atenolol 50 mg tablet 50 mg PO QAM RF: 0 Discontinued aspirin [Adult Low Dose Aspirin] 81 mg tablet,delayed release (DR/EC) 81 mg PO HS RF: 0 acetaminophen [Tylenol Extra Strength] 500 mg Capsule 500 mg PO Q6H PRN (Reason: Pain) RF: 0 Discharge Orders: Discharge Order (Routine); Ordered 01/08/21 Ordered By: Duy Mares/Other Patient Handouts: DVT Post Op Prevention Admission Data Admit Date/Time: 01/06/21 13:33 Attending Provider: Raul Gauthier Admit Provider: Raul Gauthier Primary Care Provider: Mei Curtis Other Providers: Samir Zapata ; [facility] ; Zachary Hendrix at [place] Other Interventions: Discharge Summary Assessment (RN) Last Done: 01/08/21 12:57
== END 2021-01-08 15:33 | disposition home health service (06) | DRG 470 ==
LOC: ASU 10:07 → 3E 10:07